=== PATIENT | female | born 1970 | race Caucasian/White ===

== ENCOUNTER 2016-11-23 18:02 | Emergency (ER) | payer OTHER ==
[~2016-11-23] VITALS: Wt 104.3 kg
[~2016-11-23 18:02] MED LIST: A-CILLIN500 MG PO; ALPRAZOLAM XR0.5 MG PO; AMBIEN10 M1 PO; ATIVAN0.5 MG PO; BACTRIM DS 8001 TA1 PO; CIPROFLOXACIN500 MG PO; CORTISPORIN SUS10 ML OT; CYCLOBENZAPRINE10 MG PO; DIFLUCAN150 MG PO; DUONEB 3 MG/3 ML3 M1 INH; FLEXERIL10 MG PO; FLURAZEPAM HCL15 MG PO; HYDROCODONE BIT1 T11 PO; LEVAQUIN750 MG PO; LEVOFLOXACIN500 MG PO; MOTRIN800 MG PO; NAPROSYN500 MG PO; PENICILLIN VK500 MG PO; PREDNICOT20 MG PO; PREDNISONE10 MG PO; PROZAC20 MG PO; PYRIDIUM200 M1 PO; PYRIDIUM200 MG PO; Peridex 473 ML473 ML PO; RESTORIL15 MG PO; ROBITUSSIN AC 110 ML PO; SEROQUEL400 M1 PO; TYLENOL500 MG PO; VICODIN 5/500 505 MG PO; Vicodin 5/500 505 MG PO; XANAX1 MG PO
[2016-11-23] MEDS ORDERED: ZITHROMAX250 MG PO (19:37)
[2016-11-23] MEDS ORDERED: HYCODAN/HYDROMET5 ML PO (19:37)
== END 2016-11-23 19:42 | disposition home or self-care (01) ==
LOC: ED 18:02
DX: R05 Cough (principal); Z98.890 Other specified postprocedural states; Z98.51 Tubal ligation status; Z90.710 Acquired absence of both cervix and uterus

== ENCOUNTER 2017-01-31 08:18 | Inpatient (IN) | payer OTHER ==
[~2017-01-31] VITALS: Ht 167.6 cm; Wt 108.0 kg
--- NOTE | ~2017-01-31 | PR ---
[place], [place] PROGRESS NOTE [id number] #: [id number] ROOM: 505 DOCTOR: ANEUDY PARKER MD BIRTHDATE: [birth year] DOS: The patient is having more cough and some wheezing and some chest pain. She has diffuse rhonchi and crepitus in the lungs and her heart is regular. Her blood pressure 126/88, pulse is 92, respirations 18, temperature 98.6. Her CBC today showed white count 7200 and hemoglobin is 13. Comprehensive metabolic profile showed glucose 151, potassium 3.3, calcium 8.2, other values are normal. I will start the patient on DuoNeb and also Mucinex. ANEUDY PARKER MD CM:PNTRANS 1410 5 ANEUDY PARKER MD 02/02/177 interface
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
[~2017-01-31 08:18] MED LIST changes: +HYCODAN/HYDROMET5 ML PO; +ZITHROMAX250 MG PO
[2017-01-31 12:00] LABS: BASO % 0.4 % (0.0-1.0); EOS # 0.6 10*3/uL (0.0-0.4); EOS % 6.9 % (1.0-4.0); HEMOGLOBIN 13.2 g/dl (12.0-16.0); LYMPH # 1.1 10*3/uL (1.3-4.4); LYMPH % 13.8 % (27.0-41.0); MEAN CELL VOLUME 80.2 fl (81.0-99.0); MEAN CORPUSCULAR HGB 26.5 pg (27.0-31.0); MEAN PLATELET VOLUME 9.1 fl (9.6-12.3); MONO # 0.6 10*3/uL (0.1-1.0); MONO % 7.5 % (3.0-9.0); NEUT # 5.9 10*3/uL (2.3-7.9); NEUT % 70.9 % (47.0-73.0); PLATELET COUNT AUTOMATED 178 10*3/uL (130-400); RED BLOOD COUNT 4.99 10*6/uL (4.10-5.10); WHITE BLOOD COUNT 8.3 10*3/uL (4.8-10.8)
[2017-01-31 12:18] LABS: BUN 11 mg/dl (7-24); CARBON DIOXIDE 27 mmol/L (21-32); CHLORIDE 104 mmol/L (98-107); EST GLOM FILT AFRICAN AMERICAN > 60 ml/min; GLUCOSE 101 mg/dL (65-99); POTASSIUM 3.6 mmol/L (3.5-5.1); SODIUM 142 mmol/L (136-145)
[2017-01-31 12:21] LABS: TROPONIN I < 0.015 ng/ml (<0.045)
[2017-02-01 05:58] LABS: BASO % 0.1 % (0.0-1.0); EOS # 0.1 10*3/uL (0.0-0.4); EOS % 1.2 % (1.0-4.0); HEMATOCRIT 39.6 % (37.0-47.0); IG # 0.1 10*3/uL (0.0-0.1); LYMPH % 13.1 % (27.0-41.0); MEAN CELL VOLUME 80.8 fl (81.0-99.0); MEAN CORPUSCULAR HGB 26.5 pg (27.0-31.0); MEAN CORPUSCULAR HGB CONC 32.8 g/dl (33.0-37.0); MEAN PLATELET VOLUME 9.4 fl (9.6-12.3); MONO # 0.6 10*3/uL (0.1-1.0); MONO % 8.4 % (3.0-9.0); NEUT # 5.5 10*3/uL (2.3-7.9); NEUT % 76.5 % (47.0-73.0); PLATELET COUNT AUTOMATED 223 10*3/uL (130-400); WHITE BLOOD COUNT 7.2 10*3/uL (4.8-10.8)
[2017-02-01 06:00] LABS: ALBUMIN 3.2 gm/dl (3.1-4.5); ALKALINE PHOSPHATASE 71 U/L (45-117); BILIRUBIN, TOTAL 0.2 mg/dl (0.2-1.0); BUN 9 mg/dl (7-24); CARBON DIOXIDE 26 mmol/L (21-32); CHLORIDE 104 mmol/L (98-107); EST GLOM FILT AFRICAN AMERICAN > 60 ml/min; GLUCOSE 151 mg/dL (65-99); POTASSIUM 3.3 mmol/L (3.5-5.1); SGOT/AST 15 IU/L (3-35); SGPT/ALT 25 U/L (12-78); SODIUM 140 mmol/L (136-145); TOTAL PROTEIN 6.9 gm/dL (6.4-8.2)
[2017-02-03 07:25] LABS: BUN 9 mg/dl (7-24); CARBON DIOXIDE 31 mmol/L (21-32); CHLORIDE 101 mmol/L (98-107); EST GLOM FILT AFRICAN AMERICAN > 60 ml/min; GLUCOSE 94 mg/dL (65-99); POTASSIUM 3.8 mmol/L (3.5-5.1); SODIUM 140 mmol/L (136-145)
[2017-02-04 06:13] LABS: BASO % 0.4 % (0.0-1.0); EOS # 0.6 10*3/uL (0.0-0.4); HEMATOCRIT 41.7 % (37.0-47.0); HEMOGLOBIN 13.5 g/dl (12.0-16.0); IG # 0.1 10*3/uL (0.0-0.1); LYMPH # 2.6 10*3/uL (1.3-4.4); LYMPH % 31.5 % (27.0-41.0); MEAN CELL VOLUME 81.1 fl (81.0-99.0); MEAN CORPUSCULAR HGB 26.3 pg (27.0-31.0); MEAN CORPUSCULAR HGB CONC 32.4 g/dl (33.0-37.0); MEAN PLATELET VOLUME 9.2 fl (9.6-12.3); MONO # 0.5 10*3/uL (0.1-1.0); MONO % 6.3 % (3.0-9.0); NEUT # 4.5 10*3/uL (2.3-7.9); NEUT % 54.2 % (47.0-73.0); PLATELET COUNT AUTOMATED 232 10*3/uL (130-400); RED BLOOD COUNT 5.14 10*6/uL (4.10-5.10); RED CELL DISTRI WIDTH 13.7 % (0-14.5); WHITE BLOOD COUNT 8.4 10*3/uL (4.8-10.8)
[2017-02-05] MEDS ORDERED: MUCINEX COLD-F177 ML PO (14:14)
[2017-02-05] MEDS ORDERED: DOXYCYCLINE100 M3 PO (14:14)
[2017-02-05] MEDS ORDERED: ROBITUSSIN5 ML PO (14:14)
== END 2017-02-05 14:24 | disposition home or self-care (01) | DRG 871 ==
LOC: ED 08:18 → EDHOLD 12:29 → 5E 12:29
PROVIDERS: Emergency Medicine; Internal Medicine; Student in an Organized Health Care Education/Training Program
DX: A41.9 Sepsis, unspecified organism (principal); J18.1 Lobar pneumonia, unspecified organism; E44.0 Moderate protein-calorie malnutrition; F33.9 Major depressive disorder, recurrent, unspecified; M54.5 Low back pain; F41.9 Anxiety disorder, unspecified; Z68.28 Body mass index [BMI] 28.0-28.9, adult

== ENCOUNTER 2017-07-26 20:41 | Emergency (ER) | payer OTHER ==
[~2017-07-26] VITALS: Ht 167.6 cm; Wt 97.5 kg
[~2017-07-26 20:41] MED LIST changes: +DOXYCYCLINE100 M3 PO; +MUCINEX COLD-F177 ML PO; +ROBITUSSIN5 ML PO
[2017-07-26 21:11] LABS: BILIRUBIN NEGATIVE (NEGATIVE); BLOOD TRACE-INTACT (NEGATIVE); CLARITY CLOUDY (CLEAR); COLOR YELLOW (YELLOW); GLUCOSE NEGATIVE (NEGATIVE); KETONE NEGATIVE (NEGATIVE); LEUKO ESTERASE NEGATIVE (NEGATIVE); NITRITE NEGATIVE (NEGATIVE); SPECIFIC GRAVITY >= 1.030 (1.005-1.030); UROBILINOGEN 0.2 E.U./dl (0.2-1.0)
[2017-07-26 21:16] LABS: BACTERIA 4+; EPITHELIAL CELLS TNTC; RBC 0-2 rbc/hpf (0-2)
== END 2017-07-26 23:49 | disposition home or self-care (01) ==
LOC: ED 20:41
PROVIDERS: Nurse Practitioner Family
DX: R07.81 Pleurodynia (principal)

== ENCOUNTER 2017-10-22 16:36 | Emergency (ER) | payer OTHER ==
[~2017-10-22] VITALS: Ht 167.6 cm; Wt 99.8 kg
[2017-10-22] MEDS ORDERED: BROMFED DM COU118 M2 PO (17:24)
[2017-10-22] MEDS ORDERED: AUGMENTIN 875875 MG PO (17:24)
== END 2017-10-22 17:40 | disposition home or self-care (01) ==
LOC: ED 16:36
DX: J02.9 Acute pharyngitis, unspecified (principal); H66.93 Otitis media, unspecified, bilateral; Z98.51 Tubal ligation status; Z79.899 Other long term (current) drug therapy

== ENCOUNTER 2018-03-13 08:02 | Emergency (ER) | payer OTHER ==
[~2018-03-13] VITALS: Ht 167.6 cm; Wt 99.8 kg
[~2018-03-13 08:02] MED LIST changes: +AUGMENTIN 875875 MG PO; +BROMFED DM COU118 M2 PO
[2018-03-13] MEDS ORDERED: ROBITUSSIN DM 105 ML PO (08:52)
[2018-03-13] MEDS ORDERED: FLONASE ALLERG9.9 ML NAS (08:52)
== END 2018-03-13 09:25 | disposition home or self-care (01) ==
LOC: ED 08:02
DX: J06.9 Acute upper respiratory infection, unspecified (principal); R05 Cough; Z98.890 Other specified postprocedural states; Z98.51 Tubal ligation status; Z90.710 Acquired absence of both cervix and uterus; Z79.899 Other long term (current) drug therapy

== ENCOUNTER → 2018-03-15 | Outpatient (CLI) | payer OTHER ==
[~2018-03-15] MED LIST changes: +FLONASE ALLERG9.9 ML NAS; +IBU800 MG PO; +ROBITUSSIN DM 105 ML PO; +SEROQUEL100 MG PO
[2018-03-15 17:52] LABS: BASO # 0.1 10*3/uL (0.0-0.1); BASO % 0.4 % (0.0-1.0); EOS % 7.7 % (1.0-4.0); HEMATOCRIT 39.9 % (37.0-47.0); HEMOGLOBIN 13.2 g/dl (12.0-16.0); LYMPH # 2.3 10*3/uL (1.3-4.4); LYMPH % 17.2 % (27.0-41.0); MEAN CELL VOLUME 81.3 fl (81.0-99.0); MEAN CORPUSCULAR HGB 26.9 pg (27.0-31.0); MEAN CORPUSCULAR HGB CONC 33.1 g/dl (33.0-37.0); MEAN PLATELET VOLUME 8.8 fl (9.6-12.3); MONO # 0.9 10*3/uL (0.1-1.0); MONO % 6.7 % (3.0-9.0); NEUT % 67.2 % (47.0-73.0); PLATELET COUNT AUTOMATED 211 10*3/uL (130-400); RED BLOOD COUNT 4.91 10*6/uL (4.10-5.10); RED CELL DISTRI WIDTH 13.2 % (0-14.5); WHITE BLOOD COUNT 13.4 10*3/uL (4.8-10.8)
[2018-03-15 18:08] LABS: ALBUMIN 3.3 gm/dl (3.1-4.5); ALKALINE PHOSPHATASE 76 U/L (45-117); BUN 16 mg/dl (7-24); CHLORIDE 104 mmol/L (98-107); CREATININE 0.89 mg/dL (0.55-1.02); POTASSIUM 3.6 mmol/L (3.5-5.1); SGOT/AST 12 IU/L (3-35); SGPT/ALT 23 U/L (12-78); SODIUM 139 mmol/L (136-145)
== END | disposition home or self-care (01) ==
LOC: LAB 17:17
PROVIDERS: Internal Medicine
DX: J44.9 Chronic obstructive pulmonary disease, unspecified (principal); J18.9 Pneumonia, unspecified organism; R09.89 Other specified symptoms and signs involving the circulatory and respiratory systems

== ENCOUNTER 2018-03-16 15:42 | Inpatient (IN) | payer OTHER ==
[~2018-03-16] VITALS: Ht 167.6 cm; Wt 111.2 kg
--- NOTE | ~2018-03-16 | PR ---
[place], [place] PROGRESS NOTE NAME: RUBI WYNN [facility] #: [id number] UNIT #: [id number] ROOM: 408 DOCTOR: ANEUDY PARKER MD BIRTHDATE: [birth year] DOS: SUBJECTIVE: The patient has been admitted to hospital with severe acute bronchitis and bronchial asthma. She is gradually getting better. She is breathing better today. OBJECTIVE: VITAL SIGNS: Her temperature 98, pulse is 110, respirations 20, blood pressure 140/86. CHEST: Occasional rhonchi. No crepitation. ABDOMEN: Soft. EXTREMITIES: There is no swelling of the leg, so the patient is showing some improvement. ANEUDY PARKER MD CM:PNTRANS 1704 28 ANEUDY PARKER MD 03/21/182027 interface
--- NOTE | ~2018-03-16 | PR ---
[place], [place] PROGRESS NOTE NAME: [id number] UNIT #: [id number] ROOM: 408 DOCTOR: ANEUDY PARKER MD BIRTHDATE: [birth year] DOS: 03/20/2018 SUBJECTIVE: The patient has been admitted to hospital with severe persistent asthmatic attack with difficulty in breathing. She was getting little better, but last night, she had a lot of severe cough, which improved a little bit now and she is having bilateral wheezing with no crepitation. OBJECTIVE: HEART: Regular. ABDOMEN: Soft. VITAL SIGNS: Stable. PLAN: So, she is showing slow improvement. We will continue with the present treatment. ANEUDY PARKER MD CM:PNTRANS 0812 0854 ANEUDY PARKER MD 03/21/18 0055 interface
[~2018-03-16 15:42] MED LIST changes: -IBU800 MG PO; -SEROQUEL100 MG PO
[2018-03-16 16:00] VITALS: BP 124/80; BP 130/57
[2018-03-16] MEDS ORDERED: SEROQUEL100 MG PO (16:16)
[2018-03-16] MEDS ORDERED: IBU800 MG PO (16:18)
[2018-03-16] MEDS ORDERED: CYCLOBENZAPRINE10 MG PO (16:18)
[2018-03-16 16:30] LABS: BASO # 0.1 10*3/uL (0.0-0.1); BASO % 0.4 % (0.0-1.0); EOS # 0.7 10*3/uL (0.0-0.4); HEMATOCRIT 40.8 % (37.0-47.0); HEMOGLOBIN 13.5 g/dl (12.0-16.0); LYMPH # 2.2 10*3/uL (1.3-4.4); LYMPH % 18.6 % (27.0-41.0); MEAN CORPUSCULAR HGB 26.8 pg (27.0-31.0); MEAN CORPUSCULAR HGB CONC 33.1 g/dl (33.0-37.0); MEAN PLATELET VOLUME 8.9 fl (9.6-12.3); MONO # 0.8 10*3/uL (0.1-1.0); MONO % 6.6 % (3.0-9.0); NEUT # 7.8 10*3/uL (2.3-7.9); NEUT % 67.5 % (47.0-73.0); PLATELET COUNT AUTOMATED 237 10*3/uL (130-400); RED BLOOD COUNT 5.04 10*6/uL (4.10-5.10); RED CELL DISTRI WIDTH 13.2 % (0-14.5); WHITE BLOOD COUNT 11.6 10*3/uL (4.8-10.8)
[2018-03-16 16:49] LABS: ALBUMIN 3.3 gm/dl (3.1-4.5); ALKALINE PHOSPHATASE 72 U/L (45-117); BUN 12 mg/dl (7-24); CHLORIDE 104 mmol/L (98-107); CREATININE 0.86 mg/dL (0.55-1.02); POTASSIUM 3.6 mmol/L (3.5-5.1); SGOT/AST 11 IU/L (3-35); SGPT/ALT 21 U/L (12-78); SODIUM 139 mmol/L (136-145)
[2018-03-16 20:00] VITALS: BP 127/74
[2018-03-17 00:20] VITALS: BP 131/71
[2018-03-17 07:39] LABS: HEMATOCRIT 38.8 % (37.0-47.0); HEMOGLOBIN 12.7 g/dl (12.0-16.0); MEAN CELL VOLUME 81.9 fl (81.0-99.0); MEAN CORPUSCULAR HGB 26.8 pg (27.0-31.0); MEAN CORPUSCULAR HGB CONC 32.7 g/dl (33.0-37.0); PLATELET COUNT AUTOMATED 225 10*3/uL (130-400); RED BLOOD COUNT 4.74 10*6/uL (4.10-5.10); RED CELL DISTRI WIDTH 13.1 % (0-14.5); WHITE BLOOD COUNT 14.8 10*3/uL (4.8-10.8)
[2018-03-17 07:55] LABS: ACT PARTIAL THROMBO TIME 22.3 SECONDS (20.8-31.5); INTERNATIONAL NORM RATIO 0.9 (2.0-3.5)
[2018-03-17 08:00] VITALS: BP 139/76
[2018-03-17 08:01] LABS: ALKALINE PHOSPHATASE 68 U/L (45-117); BUN 12 mg/dl (7-24); CHLORIDE 106 mmol/L (98-107); CHOLESTEROL 194 mg/dL (<200); CREATININE 0.86 mg/dL (0.55-1.02); FREE T4 1.01 ng/dl (0.76-1.46); HDL CHOLESTEROL 46 mg/dl (40-60); LDL CHOLESTEROL 129 mg/dL (9-159); POTASSIUM 3.6 mmol/L (3.5-5.1); SGOT/AST 10 IU/L (3-35); SODIUM 140 mmol/L (136-145); TRIGLYCERIDES 96 mg/dl (<150); VLDL CHOLESTEROL 19 mg/dL (6-40)
[2018-03-17 08:06] LABS: BURR CELLS FEW; PLATELET SUFFICIENCY NORMAL (NORMAL); POLYCHROMASIA SLIGHT; SGPT/ALT 20 U/L (12-78); THYROID STIM HORMONE (HS) 0.456 uIU/ml (0.358-4.75); TOTAL CELLS COUNTED 100 #CELLS; TOTAL PROTEIN 6.6 gm/dL (6.4-8.2)
[2018-03-17 09:16] LABS: BILIRUBIN NEGATIVE (NEGATIVE); BLOOD NEGATIVE (NEGATIVE); CLARITY CLOUDY (CLEAR); COLOR YELLOW (YELLOW); GLUCOSE TRACE (NEGATIVE); KETONE NEGATIVE (NEGATIVE); LEUKO ESTERASE NEGATIVE (NEGATIVE); NITRITE NEGATIVE (NEGATIVE); PH 6.5 (5.0-9.0); SPECIFIC GRAVITY <= 1.005 (1.005-1.030); UROBILINOGEN 0.2 E.U./dl (0.2-1.0)
[2018-03-17 09:53] LABS: VITAMIN D, 25-HYDROXY 27.7 ng/mL (30-100)
[2018-03-17 10:38] LABS: BACTERIA TRACE; EPITHELIAL CELLS 20-30
[2018-03-17 12:00] VITALS: BP 116/78
[2018-03-17 16:00] VITALS: BP 130/82
[2018-03-17 20:00] VITALS: BP 174/93
[2018-03-18] VITALS: BP 116/72; BP 160/99
[2018-03-18 06:50] LABS: BASO % 0.2 % (0.0-1.0); HEMATOCRIT 38.3 % (37.0-47.0); HEMOGLOBIN 12.4 g/dl (12.0-16.0); LYMPH # 1.1 10*3/uL (1.3-4.4); LYMPH % 5.6 % (27.0-41.0); MEAN CELL VOLUME 82.7 fl (81.0-99.0); MEAN CORPUSCULAR HGB 26.8 pg (27.0-31.0); MEAN CORPUSCULAR HGB CONC 32.4 g/dl (33.0-37.0); MEAN PLATELET VOLUME 9.1 fl (9.6-12.3); MONO # 0.6 10*3/uL (0.1-1.0); NEUT # 17.3 10*3/uL (2.3-7.9); NEUT % 89.7 % (47.0-73.0); PLATELET COUNT AUTOMATED 229 10*3/uL (130-400); RED BLOOD COUNT 4.63 10*6/uL (4.10-5.10); RED CELL DISTRI WIDTH 13.4 % (0-14.5); WHITE BLOOD COUNT 19.2 10*3/uL (4.8-10.8)
[2018-03-18 07:00] LABS: ALKALINE PHOSPHATASE 67 U/L (45-117); BUN 15 mg/dl (7-24); CHLORIDE 107 mmol/L (98-107); CREATININE 0.77 mg/dL (0.55-1.02); POTASSIUM 3.9 mmol/L (3.5-5.1); SGOT/AST 8 IU/L (3-35); SGPT/ALT 19 U/L (12-78); SODIUM 141 mmol/L (136-145); TOTAL PROTEIN 6.6 gm/dL (6.4-8.2)
[2018-03-18 08:00] VITALS: BP 138/69
[2018-03-18 16:00] VITALS: BP 144/84; BP 153/94
[2018-03-18 20:00] VITALS: BP 129/76
[2018-03-19] VITALS: BP 119/71
[2018-03-19 08:00] VITALS: BP 141/78
[2018-03-19 12:00] VITALS: BP 150/72
[2018-03-19 16:00] VITALS: BP 141/85
[2018-03-19 20:00] VITALS: BP 137/83
[2018-03-20] VITALS: BP 147/87
[2018-03-20 08:00] VITALS: BP 112/71
[2018-03-20 12:00] VITALS: BP 137/85
[2018-03-20 16:00] VITALS: BP 144/96
[2018-03-20 20:00] VITALS: BP 140/86
[2018-03-21] VITALS: BP 148/88; BP 151/92
[2018-03-21 08:00] VITALS: BP 137/88
[2018-03-21 12:00] VITALS: BP 138/90
[2018-03-21 16:00] VITALS: BP 141/81
[2018-03-21 20:00] VITALS: BP 144/80
[2018-03-22] VITALS: BP 119/61
[2018-03-22 06:45] LABS: HEMATOCRIT 42.6 % (37.0-47.0); HEMOGLOBIN 13.5 g/dl (12.0-16.0); MEAN CELL VOLUME 82.9 fl (81.0-99.0); MEAN CORPUSCULAR HGB 26.3 pg (27.0-31.0); MEAN CORPUSCULAR HGB CONC 31.7 g/dl (33.0-37.0); MEAN PLATELET VOLUME 10.3 fl (9.6-12.3); PLATELET COUNT AUTOMATED 242 10*3/uL (130-400); RED BLOOD COUNT 5.14 10*6/uL (4.10-5.10); RED CELL DISTRI WIDTH 13.2 % (0-14.5); WHITE BLOOD COUNT 20.6 10*3/uL (4.8-10.8)
[2018-03-22 06:46] LABS: CREATININE 0.88 mg/dL (0.55-1.02)
[2018-03-22 07:57] LABS: PLATELET SUFFICIENCY NORMAL (NORMAL); TOTAL CELLS COUNTED 100 #CELLS
[2018-03-22 08:00] VITALS: BP 140/71
[2018-03-22 12:00] VITALS: BP 158/90
[2018-03-22] MEDS ORDERED: PREDNISONE10 MG PO (13:45)
[2018-03-22] MEDS ORDERED: ZITHROMAX500 MG PO (13:47)
== END 2018-03-22 14:32 | disposition home or self-care (01) | DRG 871 ==
LOC: 4E 15:42
PROVIDERS: Internal Medicine
DX: A41.9 Sepsis, unspecified organism (principal); J18.9 Pneumonia, unspecified organism; J45.51 Severe persistent asthma with (acute) exacerbation; D72.810 Lymphocytopenia; J45.909 Unspecified asthma, uncomplicated; F41.9 Anxiety disorder, unspecified; G47.00 Insomnia, unspecified; R73.03 Prediabetes; Z80.1 Family history of malignant neoplasm of trachea, bronchus and lung; Z80.8 Family history of malignant neoplasm of other organs or systems; Z79.899 Other long term (current) drug therapy

== ENCOUNTER → 2018-09-22 | Outpatient (CLI) | payer OTHER ==
[~2018-09-22] MED LIST changes: +IBU800 MG PO; +NORCO 5-325 TA1 EACH PO; +SEROQUEL100 MG PO; +ZITHROMAX500 MG PO
== END | disposition home or self-care (01) ==
LOC: RAD 17:56
DX: S33.5XXA Sprain of ligaments of lumbar spine, initial encounter (principal); M43.16 Spondylolisthesis, lumbar region; X58.XXXA Exposure to other specified factors, initial encounter; Y93.9 Activity, unspecified; Y92.89 Other specified places as the place of occurrence of the external cause; Y99.8 Other external cause status

== ENCOUNTER → 2018-10-12 | Outpatient (CLI) | payer OTHER | END | disposition home or self-care (01) | LOC: CT 13:00 | DX: M51.36 Other intervertebral disc degeneration, lumbar region (principal) ==

== ENCOUNTER 2018-10-16 01:45 | Emergency (ER) | payer OTHER ==
[~2018-10-16] VITALS: Ht 167.6 cm; Wt 120.2 kg
[~2018-10-16 01:45] MED LIST changes: -NORCO 5-325 TA1 EACH PO
[2018-10-16 02:30] LABS: BILIRUBIN NEGATIVE (NEGATIVE); BLOOD 2+ (NEGATIVE); CLARITY SL CLOUDY (CLEAR); COLOR YELLOW (YELLOW); GLUCOSE NEGATIVE (NEGATIVE); KETONE NEGATIVE (NEGATIVE); LEUKO ESTERASE NEGATIVE (NEGATIVE); NITRITE NEGATIVE (NEGATIVE); SPECIFIC GRAVITY 1.025 (1.005-1.030); UROBILINOGEN 0.2 E.U./dl (0.2-1.0)
[2018-10-16 02:41] LABS: BACTERIA 2+; EPITHELIAL CELLS 35-40; RBC 31-40 rbc/hpf (0-2)
[2018-10-16 02:44] LABS: BASO # 0.1 10*3/uL (0.0-0.1); BASO % 0.4 % (0.0-1.0); EOS # 0.5 10*3/uL (0.0-0.4); EOS % 3.5 % (1.0-4.0); HEMATOCRIT 38.7 % (37.0-47.0); HEMOGLOBIN 12.8 g/dl (12.0-16.0); LYMPH # 2.5 10*3/uL (1.3-4.4); LYMPH % 15.9 % (27.0-41.0); MEAN CELL VOLUME 81.3 fl (81.0-99.0); MEAN CORPUSCULAR HGB 26.9 pg (27.0-31.0); MEAN CORPUSCULAR HGB CONC 33.1 g/dl (33.0-37.0); MEAN PLATELET VOLUME 9.1 fl (9.6-12.3); MONO # 1.1 10*3/uL (0.1-1.0); MONO % 6.9 % (3.0-9.0); NEUT # 11.3 10*3/uL (2.3-7.9); NEUT % 72.1 % (47.0-73.0); PLATELET COUNT AUTOMATED 230 10*3/uL (130-400); RED BLOOD COUNT 4.76 10*6/uL (4.10-5.10); RED CELL DISTRI WIDTH 14.4 % (0-14.5); WHITE BLOOD COUNT 15.6 10*3/uL (4.8-10.8)
[2018-10-16 02:57] LABS: ALBUMIN 3.2 gm/dl (3.1-4.5); ALKALINE PHOSPHATASE 71 U/L (45-117); BUN 13 mg/dl (7-24); CHLORIDE 103 mmol/L (98-107); CREATININE 0.79 mg/dL (0.55-1.02); LIPASE 93 U/L (73-393); POTASSIUM 3.6 mmol/L (3.5-5.1); SGOT/AST 18 IU/L (3-35); SGPT/ALT 28 U/L (12-78); SODIUM 136 mmol/L (136-145); TOTAL PROTEIN 6.8 gm/dL (6.4-8.2)
[2018-10-16] MEDS ORDERED: NORCO 5-325 TA1 EACH PO (03:58)
== END 2018-10-16 05:01 | disposition home or self-care (01) ==
LOC: ED 01:45
PROVIDERS: Emergency Medicine Emergency Medical Services
DX: N20.1 Calculus of ureter (principal); N36.8 Other specified disorders of urethra; J45.909 Unspecified asthma, uncomplicated; Z87.442 Personal history of urinary calculi

== ENCOUNTER 2018-11-10 22:29 | Emergency (ER) | payer OTHER ==
[~2018-11-10] VITALS: Ht 167.6 cm; Wt 122.5 kg
--- NOTE | ~2018-11-10 | EKG ---
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
[~2018-11-10 22:29] MED LIST changes: +NORCO 5-325 TA1 EACH PO
[2018-11-10 23:22] LABS: BASO # 0.1 10*3/uL (0.0-0.1); BASO % 0.3 % (0.0-1.0); EOS # 0.4 10*3/uL (0.0-0.4); EOS % 2.7 % (1.0-4.0); HEMOGLOBIN 12.7 g/dl (12.0-16.0); LYMPH # 2.4 10*3/uL (1.3-4.4); LYMPH % 15.8 % (27.0-41.0); MEAN CELL VOLUME 81.4 fl (81.0-99.0); MEAN CORPUSCULAR HGB 26.5 pg (27.0-31.0); MEAN CORPUSCULAR HGB CONC 32.6 g/dl (33.0-37.0); MEAN PLATELET VOLUME 8.7 fl (9.6-12.3); MONO # 0.8 10*3/uL (0.1-1.0); MONO % 5.5 % (3.0-9.0); NEUT # 11.2 10*3/uL (2.3-7.9); NEUT % 74.5 % (47.0-73.0); PLATELET COUNT AUTOMATED 243 10*3/uL (130-400); RED BLOOD COUNT 4.79 10*6/uL (4.10-5.10); RED CELL DISTRI WIDTH 14.3 % (0-14.5)
[2018-11-10 23:35] LABS: ACT PARTIAL THROMBO TIME 23.2 SECONDS (20.8-31.5); INTERNATIONAL NORM RATIO 0.9 (2.0-3.5)
[2018-11-10 23:41] LABS: ALBUMIN 3.2 gm/dl (3.1-4.5); ALKALINE PHOSPHATASE 62 U/L (45-117); BUN 16 mg/dl (7-24); CHLORIDE 102 mmol/L (98-107); CREATININE 0.91 mg/dL (0.55-1.02); POTASSIUM 3.6 mmol/L (3.5-5.1); SGOT/AST 12 IU/L (3-35); SGPT/ALT 18 U/L (12-78); SODIUM 138 mmol/L (136-145); TOTAL PROTEIN 6.8 gm/dL (6.4-8.2)
[2018-11-10 23:42] LABS: BETA-HCG, QUANT < 1.0 mIU/mL (1-3); TROPONIN I < 0.015 ng/ml (<0.045)
[2018-11-11 00:44] LABS: BILIRUBIN NEGATIVE (NEGATIVE); BLOOD 1+ (NEGATIVE); CLARITY SL CLOUDY (CLEAR); COLOR YELLOW (YELLOW); GLUCOSE NEGATIVE (NEGATIVE); KETONE NEGATIVE (NEGATIVE); LEUKO ESTERASE NEGATIVE (NEGATIVE); NITRITE NEGATIVE (NEGATIVE); UROBILINOGEN 0.2 E.U./dl (0.2-1.0)
[2018-11-11 00:53] LABS: EPITHELIAL CELLS 40-45
[2018-11-11 00:54] LABS: WBC 0-2 wbc/hpf (0-5)
== END 2018-11-11 08:28 | disposition home or self-care (01) ==
LOC: ED 22:29
PROVIDERS: Student in an Organized Health Care Education/Training Program
DX: M79.89 Other specified soft tissue disorders (principal); J45.909 Unspecified asthma, uncomplicated; N23 Unspecified renal colic; Z90.710 Acquired absence of both cervix and uterus; Z79.2 Long term (current) use of antibiotics; Z79.899 Other long term (current) drug therapy

== ENCOUNTER 2019-01-23 14:56 | Emergency (ER) | payer OTHER ==
[~2019-01-23] VITALS: Ht 167.6 cm; Wt 127.0 kg
--- NOTE | ~2019-01-23 | EKG ---
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 : 1970 Requested By: SOHEILA VAZQUEZ DNP Order Number: [id number] Reading MD: Kar Wong MD Measurements Intervals [place] Rate: 104 P: 74 NC: 198 QRS: 89 QRSD: 91 T: 26 QT: 369 QTc: 486 Interpretive Statements Sinus tachycardia Borderline prolonged NC interval Low voltage, precordial leads Nonspecific T abnormalities, anterior leads Minimal ST elevation, lateral leads Borderline prolonged QT interval Baseline wander in lead(s) I,II,aVR,aVF,V3,V6 Compared to ECG 11/10/2018 23:02:56 Low QRS voltage now present T-wave abnormality now present ST (T wave) deviation still present Electronically Signed On 01-25-2019 3:58:15 PST by Kar Wong MD CM:EKGRPT:ELECTROCARDIOGRAM REPORT [id number] 0358 SOHEILA VAZQUEZ DNP EPIPHANY DRAFT REPORT SOHEILA VAZQUEZ DNP
[2019-01-23 15:43] LABS: BASO % 0.4 % (0.0-1.0); EOS # 0.4 10*3/uL (0.0-0.4); EOS % 4.1 % (1.0-4.0); HEMATOCRIT 37.2 % (37.0-47.0); LYMPH % 19.4 % (27.0-41.0); MEAN CORPUSCULAR HGB 26.1 pg (27.0-31.0); MEAN CORPUSCULAR HGB CONC 32.3 g/dl (33.0-37.0); MEAN PLATELET VOLUME 9.2 fl (9.6-12.3); MONO # 0.6 10*3/uL (0.1-1.0); MONO % 5.7 % (3.0-9.0); NEUT # 7.3 10*3/uL (2.3-7.9); NEUT % 69.2 % (47.0-73.0); PLATELET COUNT AUTOMATED 192 10*3/uL (130-400); RED BLOOD COUNT 4.59 10*6/uL (4.10-5.10); WHITE BLOOD COUNT 10.5 10*3/uL (4.8-10.8)
[2019-01-23 15:56] LABS: ACT PARTIAL THROMBO TIME 22.4 SECONDS (20.8-31.5); INTERNATIONAL NORM RATIO 0.9 (2.0-3.5)
[2019-01-23 16:08] LABS: ALBUMIN 3.3 gm/dl (3.1-4.5); ALKALINE PHOSPHATASE 69 U/L (45-117); BUN 13 mg/dl (7-24); CHLORIDE 105 mmol/L (98-107); CREATININE 0.82 mg/dL (0.55-1.02); POTASSIUM 3.2 mmol/L (3.5-5.1); SGOT/AST 19 IU/L (3-35); SGPT/ALT 33 U/L (12-78); SODIUM 141 mmol/L (136-145); TOTAL PROTEIN 6.6 gm/dL (6.4-8.2)
[2019-01-23 16:09] LABS: TROPONIN I < 0.015 ng/ml (<0.045)
== END 2019-01-23 17:12 | disposition home or self-care (01) ==
LOC: ED 14:56
PROVIDERS: Nurse Practitioner Family
DX: R60.0 Localized edema (principal); R07.89 Other chest pain; M79.605 Pain in left leg; K21.9 Gastro-esophageal reflux disease without esophagitis; Z90.710 Acquired absence of both cervix and uterus

== ENCOUNTER 2019-06-08 21:19 | Inpatient (IN) | payer OTHER ==
[~2019-06-08] VITALS: Ht 167.6 cm; Wt 134.0 kg
--- NOTE | ~2019-06-08 | PR ---
[place], [place] PROGRESS NOTE NAME: RUBI WYNN UNIT #: [id number] ROOM: 426 DOCTOR: MIA ARCE MD,DARLIN BIRTHDATE: [birth year] DOS: 06/10/2019 SUBJECTIVE: The patient noted comfortable at this time, resting on the bed this morning, reported reduction in symptoms of shortness of breath and cough. Denies symptoms of chest pain. Denies symptoms of fever or chills. The patient has symptoms of hemoptysis. Denies symptoms of nausea or vomiting. Edema of the lower extremity has been resolving. Still noted mild sinus tachycardia. Denies symptoms of headache or diplopia. Remaining systems were reviewed with the patient, they were noted all negative. OBJECTIVE: VITAL SIGNS: Normal temperature, respiratory rate 20, heart rate 103, blood pressure 140/82 recorded midnight. Intake recorded as 2200 mL, output 4660 mL. Pulse ox O2 on room air at rest was 96% saturation. HEENT: Examination shows head was atraumatic, chronic obesity. NECK: Supple. CARDIOVASCULAR: S1, S2 audible. LUNGS: Decreased breath sounds noted in the lungs bilaterally. There is no wheezing or crackles heard today. ABDOMEN: Soft, nontender. Bowel sounds present. EXTREMITIES: Still noted 1+ pitting edema. MUSCULOSKELETAL: Without deformities. CENTRAL NERVOUS SYSTEM: Cranial nerves 2-12 intact. LABORATORY DATA: BMP was noted as normal. Echocardiogram that was done yesterday reviewed by Dr. Schaefer was reported. The patient's findings as left ventricle ejection fraction 60-65%, mild LVH was reported, small pericardial effusion was also stated. There were no valvular abnormality stated. IMPRESSION: 1. The patient who has currently noted with improvement of acute exacerbation of bronchial asthma. 2. Suspicion of obstructive sleep apnea disorder. 3. Acute congestive heart failure, diastolic dysfunction very likely. 4. Morbid obesity. PLAN OF MANAGEMENT: Continuation of the current plan of management except the dose of Solu-Medrol will be decreased from 30 mg b.i.d. dosing. Continuation of other plan of management, bronchodilators, diuretic, monitor the patient's respiratory status. Use of oxygen supplementation in case of hypoxia. [place], [place] PROGRESS NOTE NAME: RUBI WYNN UNIT #: [id number] ROOM: 426 DOCTOR: DARLIN SOMMER MD BIRTHDATE: [birth year] DARLIN BELLAMY MD CM:PNTRANS 25 DARLIN ARCE MD 06/10/192225 interface
--- NOTE | ~2019-06-08 | DS ---
[place], [place] DISCHARGE SUMMARY [id number] UNIT #: [id number] ROOM: 426 DOCTOR: JUAN HOLDER MD BIRTHDATE: [birth year] DOS: 06/12/2019 DIAGNOSES: 1. Acute asthmatic bronchitis. 2. Moderate intermittent asthma with history of exacerbations. 3. Acute diastolic congestive heart failure. 4. Benign hypertension with left ventricular hypertrophy. 5. Morbid obesity with a BMI of more than 50. 6. Type 2 diabetes mellitus, new onset. 7. Generalized anxiety disorder. 8. Chronic low back pain. 9. Major depression, mild, recurrent. DISCHARGE MEDICATIONS: Glimepiride 4 mg daily, prednisone 5 mg twice a day, Ceftin 250 twice a day, breathing treatments with DuoNeb twice a day, Asmanex one puff twice a day, metoprolol 50 b.i.d. HOME MEDICATIONS: Xanax 1 mg twice a day, Seroquel 800 at bedtime, Cymbalta 60 daily, gabapentin 300 t.i.d., cyclobenzaprine 10 t.i.d., diclofenac 75 b.i.d., Hycodan 5 mL twice a day, and ranitidine 300 b.i.d. are continued. HOSPITAL COURSE: The patient is 49 years old, not known to me, comes in with complaints of difficulty breathing. Please refer to H and P for details. She was found to have acute asthmatic bronchitis and acute diastolic CHF. The patient was admitted, was placed on diuretics, breathing treatments, oxygen supplementation. She was found to be hypotensive and also had new onset diabetes. Medication adjustments will be made. Dr. Olivares was consulted. The patient was continued on her home medications. Readjustments in meds were made here. With IV Solu-Medrol, her breathing is much improved. Lasix helped with her CHF. Clinically, she is much improved and back to her baseline. She has been getting nebulizer breathing treatments and was slightly tachycardic. Metoprolol has been ordered and with that the heart rate has come down. Pressures have improved. Amaryl has helped with the high blood sugar. The patient is overall stable and improved. The patient is encouraged to lose weight and is to check her blood sugars at home. Echocardiogram showed normal LV function with diastolic dysfunction and LVH. Hemoglobin A1c was 7.1. The patient to follow with Dr. Jiménez as an outpatient. [place], [place] DISCHARGE SUMMARY [facility]: [facility] [id number] UNIT #: [id number] ROOM: 426 DOCTOR: JUAN HOLDER MD BIRTHDATE: [birth year] JUAN HOLDER MD CM:DISCHMARTI 0530 1346 JUAN HOLDER MD 06/12/19 1346 interface
--- NOTE | ~2019-06-08 | EKG ---
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
--- NOTE | ~2019-06-08 | PR ---
[place], [place] PROGRESS NOTE NAME: [facility] [id number] UNIT #: [id number] ROOM: 426 DOCTOR: JUAN HOLDER MD BIRTHDATE: [birth year] DOS: 06/12/2019 SUBJECTIVE: The patient is feeling good and is not having any complaints today. OBJECTIVE: VITAL SIGNS: Graphic trend shows a pressure of 126/77, pulse of 94, respirations 18, temperature 97.4. At times the diastolic has been all the way up to high 90s. LUNGS: Diminished, breath sounds clear. HEART: Regular. ABDOMEN: Obese. EXTREMITIES: Without any edema. ASSESSMENT AND PLAN: 1. Acute asthmatic bronchitis, resolved. 2. Acute diastolic congestive heart failure, stable and improved. 3. Morbid obesity, counselled. The patient is stable, plan to discharge her to home today. JUAN HOLDER MD CM:PNTRANS 0522 2257 JUAN HOLDER MD 06/13/19 0207 interface
--- NOTE | ~2019-06-08 | WRIGHTHP ---
[place], [place] PATIENT HISTORY AND PHYSICAL EXAM NAME: RUBI WYNN [facility] #: [id number] UNIT #: [id number] ROOM: 408 DOCTOR: JUAN HOLDER MD BIRTHDATE: [birth year] DOS: 06/09/2019 HISTORY OF PRESENT ILLNESS: The patient is 49 years old. The patient is not known to us. She is a patient of Dr. Jiménez, comes in with complaints of cough. The patient states that she for the last 3-4 weeks has had cough. She was treated with three different antibiotics including Z-LUDIVINA, Augmentin and doxycycline. She also got two courses of steroids and without any improvement. She decided to come into the Emergency Room. She does not have any chest pain, but has noticed palpitations, does not have any fever or chills, does not have any abdominal pain, does not have any sputum production this morning. She has minimal leg edema. PAST MEDICAL HISTORY: Significant for: 1. Morbid obesity. 2. Generalized anxiety disorder. 3. Chronic back pain. 4. Major depression. MEDICATIONS: Voltaren 75 twice a day, cyclobenzaprine 10 t.i.d., Xanax 1 mg twice a day, duloxetine 60 daily, gabapentin 300 t.i.d., Hycodan 5 mL twice a day p.r.n., Seroquel 800 at bedtime, Zantac 300 b.i.d. SOCIAL HISTORY: Nonsmoker and does not use any alcohol. Lives at home. PHYSICAL EXAMINATION: GENERAL: She is awake and alert and oriented. VITAL SIGNS: Blood pressure is 151/94, pulse of 116-130, sinus tachycardic, respirations 20, temperature 97.9. LUNGS: Diminished breath sounds, few rales heard at the bases. HEART: Regular, tachycardic. ABDOMEN: Obese, soft. EXTREMITIES: Trace edema bilaterally. LABORATORY DATA: WBC count is 10.7, hemoglobin 12.2, hematocrit 38.6, platelets 167. Protime is 9.8, INR 1.9. Comprehensive glucose 217, BUN 12, creatinine 0.94, sodium 138, potassium 3.3, chloride 102, bicarbonate 28, calcium 8.3, protein 6.2, albumin 2.7. Lactic acid is 2.7. Chest x-ray has no pathology. CT of the chest shows no evidence of PE, atelectasis noticed in the lung bases with ground glass airspace disease throughout both lungs. ASSESSMENT AND PLAN: 1. The patient who comes in with complaints of cough and shortness of breath with known history of asthma. The patient most likely has underlying exacerbation of asthmatic bronchitis. The patient is placed on IV steroids, breathing treatments, antibiotics. Consult Dr. Olivares. 2. Morbid obesity, possibly has underlying hypertension, possibly has hypertensive heart disease. Echocardiogram is ordered. Rule out [place] protocol is also ordered, one dose of Lasix was given. 3. Benign hypertension. Pressures elevated. The patient has not taken any medications. She also is in sinus tachycardic. A low dose of Toprol will be [place], [place] PATIENT HISTORY AND PHYSICAL EXAM NAME: RUBI WYNN UNIT #: [id number] ROOM: [facility] DOCTOR: JUAN HOLDER MD BIRTHDATE: [birth year] started today. 4. Lactic acidosis of unknown etiology, possible sepsis pattern. Blood cultures will be done. 5. Elevated blood sugar noticed. She has no history of diabetes. Hemoglobin A1c will be ordered and the patient will be started on coverage scale. JUAN HOLDER MD CM:HISPHYS:PATIENT HISTORY AND PHYSICAL EXAMINATION 0843 JUAN HOLDER MD 06/09/19 0844 interface
--- NOTE | ~2019-06-08 | PR ---
[place], [place] PROGRESS NOTE NAME: RUBI WYNN UNIT #: [id number] ROOM: 426 DOCTOR: JUAN HOLDER MD BIRTHDATE: [birth year] DOS: SUBJECTIVE: The patient is doing better. She states that she is breathing better. Cough is subsiding. OBJECTIVE: VITAL SIGNS: Graphic trend shows a pressure of 140/82, pulse of 114, respirations 18, temperature 97.9. LUNGS: Diminished breath sounds, more air entry this morning, clearer. HEART: Regular, still tachycardic. ABDOMEN: Obese, soft. EXTREMITIES: Trace edema bilaterally. LABORATORY DATA: Echocardiogram not available. ASSESSMENT AND PLAN: 1. Asthmatic bronchitis with acute exacerbation, on IV steroids. Appreciate Dr. Olivares's input. 2. Benign hypertension with tachycardia, poorly controlled. Beta blockers have been started. Readjust medications. 3. Possible diastolic dysfunction. Awaiting echocardiogram results to further adjust medications. 4. Tachycardia from asthma exacerbation. Readjust meds. JUAN HOLDER MD CM:PNTRANS 0648 0659 JUAN HOLDER MD 06/10/19 0700 interface
--- NOTE | ~2019-06-08 | PR ---
[place], [place] PROGRESS NOTE [id number] #: [id number] ROOM: 426 DOCTOR: MIA ARCE MD,DARLIN BIRTHDATE: [birth year] DOS: 06/12/2019 SUBJECTIVE: She was noted comfortable at this time, resting comfortably in the bed, was planned for home discharge. She was noted to have marked improvement in symptoms of shortness of breath. There was no coughing, wheezing reported. The edema of lower extremities was resolved progressively. OBJECTIVE: VITAL SIGNS: Normal temperature, respiratory rate 18, heart rate of 106, blood pressure 126/77 previously. The pulse ox saturation on room air at rest 94% saturation. HEENT: Examination shows head was atraumatic. Eyes nonicterus. NECK: Supple. CARDIOVASCULAR: S1, S2 audible. LUNGS: No wheezing or crackles. ABDOMEN: Soft, nontender. Bowel sounds present. EXTREMITIES: No new changes. Chronic obesity. IMPRESSION: Progressive resolution of acute congestive heart failure with improvement noted acute bronchial asthma. PLAN OF MANAGEMENT: The patient could be discharged for home today as assessed by the primary care physician. Chest x-ray done this morning does not show any acute pulmonary infiltration. There was no interstitial edema, findings of congestive heart failure. DARLIN BELLAMY MD CM:PNTRANS 1350 22 DARLIN ARCE MD 06/12/192123 interface
--- NOTE | ~2019-06-08 | EKG ---
[place], [place] ELECTROCARDIOGRAM REPORT NAME: RUBI WYNN UNIT #: [id number] ROOM: 408 DOCTOR: CHE DRAFT REPORT BIRTHDATE: [birth year] [facility] Test Date: 2019-06-08 Test Time: 21:51:09 Pat Name: RUBI WYNN Department: Room: 408 Gender: F Chart Reader: : 1970 Requested By: MIGUEL READ Order Number: [id number] Reading MD: Dmitry Schaefer Measurements Intervals [place] Rate: 111 P: 69 AL: 195 QRS: 100 QRSD: 84 T: 27 QT: 322 QTc: 438 Interpretive Statements Sinus tachycardia Probable left atrial enlargement Right axis deviation Borderline T abnormalities, anterior leads Baseline wander in lead(s) V2 Compared to ECG 01/23/2019 15:25:41 Right-axis deviation now present ST (T wave) deviation no longer present T-wave abnormality still present Electronically Signed On 06-09-2019 8:39:45 PDT by Dmitry Schaefer CM:EKGRPT:ELECTROCARDIOGRAM REPORT [id number] MIGUEL BOLTON DRAFT REPORT MIGUEL BACK
--- NOTE | ~2019-06-08 | PR ---
[place], [place] PROGRESS NOTE [id number] UN[facility] #: [id number] ROOM: 426 DOCTOR: JUAN HOLDER MD BIRTHDATE: [birth year] DOS: 06/11/2019 SUBJECTIVE: The patient is feeling better, does not have any new complaints. OBJECTIVE: VITAL SIGNS: Blood pressure is 132/79, pulse of 90, respirations 20, temperature 97.5. LUNGS: Clear. HEART: Regular. Heart rate in the low 90s. ABDOMEN: Obese, soft, nontender. EXTREMITIES: Without any edema. LABORATORY DATA: Echocardiogram shows LVH with some mild diastolic dysfunction. Hemoglobin A1c 7.1. ASSESSMENT AND PLAN: 1. Acute asthmatic bronchitis with exacerbation, improving. 2. Elevated white cell count, most likely steroid effect. The steroids are being tapered down. 3. Benign hypertension, new onset with diastolic dysfunction and mild diastolic congestive heart failure, improved. Repeat chest x-ray will be ordered today. 4. Type 2 diabetes mellitus, new onset. Medications have been started. Last few blood sugars were 255 and 292. Readjustments. JUAN HOLDER MD CM:PNTRANS 0640 JUAN HOLDER MD 06/11/19 0641 interface
--- NOTE | ~2019-06-08 | EKG ---
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 : 1970 Requested By: MIGUEL READ Order Number: [id number] Reading MD: Dmitry Schaefer Measurements Intervals [place] Rate: 113 P: 67 ND: 185 QRS: 95 QRSD: 86 T: 18 QT: 341 QTc: 468 Interpretive Statements Sinus tachycardia Probable left atrial enlargement Borderline right axis deviation Borderline ST elevation, lateral leads Baseline wander in lead(s) V6 Compared to ECG 01/23/2019 15:25:41 T-wave abnormality no longer present ST (T wave) deviation still present Electronically Signed On 06-09-2019 8:41:06 PDT by Dmitry Schaefer CM:EKGRPT:ELECTROCARDIOGRAM REPORT [id number] 0841 MIGUEL BOLTON DRAFT REPORT MIGUEL BACK
--- NOTE | ~2019-06-08 | CON ---
[place], [place] REPORT OF CONSULTATION NAME: RUBI WYNN [facility] #: [id number] UNIT #: [id number] ROOM: 408 DOCTOR: DARLIN SOMMER MD BIRTHDATE: [birth year] DOS: 06/09/2019 PULMONARY CONSULTATION, EVALUATION AND MANAGEMENT REASON FOR CONSULTATION: For assessment of current ongoing abnormal respiratory symptoms, coughing, wheezing and shortness of breath. HISTORY OF PRESENT ILLNESS: This is a 49-year-old white female patient stated that she has been diagnosed with history of COPD by the primary care physician. She presented to the hospital has been noted acutely ill for the past 3 weeks with gradual worsening of the respiratory symptom. She stated symptoms of coughing with chest congestion without any sputum expectoration. She was also reporting symptoms of increased shortness of breath occurring with exertion and wheezing and chest tightness without any chest pain. Symptoms of orthopnea was reported. Also complains symptoms of sore throat. She has been treated outpatient with the use of the Z-LUDIVINA, Augmentin and 2 courses of Medrol Dosepak without any improvement in symptoms. She presented to the hospital Emergency Room, where she has been assessed and hospitalized. She was also complaining of progressive edema of the lower extremities. REVIEW OF SYSTEMS: CONSTITUTIONAL: Fatigue and tiredness reported. Denies symptoms of fever or chills. EYES: Denies any burning, redness, or tenderness. CARDIOVASCULAR: The patient was reported symptoms of orthopnea seemed to be better from yesterday. Increased edema of lower extremities noted. There were no symptoms of palpitations or angina pain. GASTROINTESTINAL: Denies dysphagia, nausea, vomiting, diarrhea, or abnormal weight loss. History of chronic severe obesity, known. GENITOURINARY SYMPTOMS: No dysuria, suprapubic pain, or hematuria. MUSCULOSKELETAL: No acute joint pain, redness, or tenderness. SKIN: No lesions or rashes. CENTRAL NERVOUS SYSTEM: Denies dizziness, diplopia or syncopal episodes. Remaining systems were reviewed. They were noted all negative. PAST MEDICAL HISTORY: 1. The patient noted with diagnosis stated by the patient's chronic obstructive pulmonary disease. 2. General anxiety disorder. 3. Severe obesity. 4. Intervertebral disk disease. 5. History of major depression. SOCIAL HISTORY: Stated by the patient. She lives at home. She is , has 2 children, nonsmoker lifetime, but has been exposed to secondhand smoke. PAST SURGICAL HISTORY: Reported left hip surgery after the trauma. FAMILY HISTORY: Father at 59 years with complication of brain aneurysm. [place], [place] REPORT OF CONSULTATION NAME: RUBI WYNN UNIT #: [id number] ROOM: [facility] DOCTOR: DARLIN SOMMER MD BIRTHDATE: [birth year] Mother at 49 years with history of lung cancer. HOME MEDICATIONS: Listed as use of Voltaren, Flexeril, Xanax, Cymbalta, gabapentin, Hycodan, Seroquel and Zantac. Current medications, which were actively used administered were Cymbalta, Seroquel, metoprolol succinate, diclofenac, sodium, Lasix, Solu-Medrol 30 mg every 8 hours, levalbuterol, gabapentin, Flexeril, Zithromax and Xanax. DRUG ALLERGIES: Noted no known drug allergies. PHYSICAL EXAMINATION: GENERAL: This is a 49-year-old female currently noted to be awake and alert without any distress. Height of 5 feet 6 inches, weight ____ pounds, BMI 49.4. VITAL SIGNS: Normal temperature since yesterday. Last 24 hours of admission, the temperature noted as normal. Respiratory rate 18-20, heart rate of 179 to mild sinus tachycardia, blood pressure 150/90-151/94, pulse ox saturation on admission room air 92% saturation, later 94% saturation recorded. HEENT: Chronic severe obesity. Head was atraumatic. Eyes nonicterus. Decreased posterior pharyngeal space. High tongue base crowding of soft tissue structures. CARDIOVASCULAR: S1, S2 audible. LUNGS: Noted general reduction in breath sounds were noted with question of wheezing. No crackles. ABDOMEN: Soft with chronic severe obesity. Bowel sounds present. No tenderness. EXTREMITIES: Chronic obesity findings at the present time. MUSCULOSKELETAL: Noted without any acute deformities. CENTRAL NERVOUS SYSTEM: Cranial nerves 2-12 intact. VISIBLE SKIN: Without lesions or rashes. LABORATORY DATA: CBC on 06/08/2019 was noted as normal WBC count, 9.7 hemoglobin and hematocrit normal, platelet count normal, eosinophils of 2.2%. The PT, PTT were noted as normal. CMP that was done 06/08/2019, normal BUN and creatinine, glucose 217, potassium 3.3. The LFTs, albumin is 2.7, total protein of 6.2. AST, ALT were normal. Troponin was noted as ____ normal yesterday and this morning. Chest x-ray was noted limited because of large body habitus, but there was no gross area of pulmonary infiltration, consolidation. Pleural fluids were seen. CT of the chest that was also completed last night, which was ordered in the Emergency Room was reviewed, does not show any evidence of pulmonary infiltration. Ground glass opacity was noted in the lungs bilaterally. There were no significant pleural fluids were seen. There was no significant mediastinal or hilar lymphadenopathy. A very small bilateral pleural effusions were seen. IMPRESSION: 1. The patient who has been currently admitted to the hospital seemed to have a combination of acute exacerbation of bronchial asthma, eosinophilia as well as acute congestive heart failure, possibly diastolic dysfunction should be [place], [place] REPORT OF CONSULTATION NAME: RUBI WYNN UNIT #: [id number] ROOM: [facility] DOCTOR: DARLIN SOMMER MD BIRTHDATE: [birth year] considered and excluded. 2. Severe morbid obesity, suspicion of obstructive sleep apnea disorder. 3. Elevation of glucose with consideration of diabetes mellitus as well. 4. Other reason could be steroid-induced hyperglycemia, since the patient has been recently using the steroids as an outpatient. PLAN OF MANAGEMENT: Diuretic therapy to be continued. Antibiotic may be discontinued. Continue Solu-Medrol. Reduction of steroids based on improvement in the symptoms. Bronchodilator to be administered as previously. Outpatient assessment would be recommended post-discharge for comprehensive pulmonary disease, which is suspected more of bronchial asthma than COPD, stated by the patient. DARLIN BELLAMY MD CM:CONSTR:REPORT OF CONSULTATION 1213 06/09/19 1544 interface
--- NOTE | ~2019-06-08 | PR ---
[place], [place] PROGRESS NOTE NAME: RUBI WYNN UNIT #: [id number] ROOM: 426 DOCTOR: MIA ARCE MD,DARLIN BIRTHDATE: [birth year] DOS: 06/11/2019 SUBJECTIVE: She has been noted comfortable at this time. Noted marked improvement and resolution of the edema of the lower extremity in the last 24 hours. Respiratory symptoms and other gradually resolving. Denies symptoms of fever or chills, coughing or any sputum expectoration reported. OBJECTIVE: VITAL SIGNS: This morning, normal temperature, respiratory rate 16, heart rate 102, blood pressure 141/94. Pulse ox saturation on room air was 94% saturation recorded. HEENT: Examination shows chronic obesity. Decreased posterior pharyngeal space, high tongue base and crowding of soft tissue structures. CARDIOVASCULAR: S1, S2 audible. LUNGS: Noted continued improvement in air entry of the lungs without any wheezing today. ABDOMEN: Soft, nontender. EXTREMITIES: Resolution of the edema. Chronic obesity findings. IMPRESSION: 1. Gradual progressive resolution of acute exacerbation of bronchial asthma. 2. Chronic obesity. 3. Congestive heart failure, diastolic dysfunction. PLAN OF TREATMENT: Decrease the Solu-Medrol dose to 30 mg daily today. Possible discharge home in the morning would be considered. DARLIN BELLAMY MD CM:PNTRANS [id number] DARLIN ARCE MD 06/11/192040 interface
[2019-06-08 21:20] VITALS: BP 151/94
[2019-06-08] MEDS ORDERED: CYMBALTA60 MG PO (21:57)
[2019-06-08] MEDS ORDERED: NEURONTIN300 MG PO (21:58)
[2019-06-08 22:18] LABS: BASO % 0.2 % (0.0-1.0); EOS # 0.2 10*3/uL (0.0-0.4); EOS % 2.2 % (1.0-4.0); HEMATOCRIT 38.6 % (37.0-47.0); HEMOGLOBIN 12.2 g/dl (12.0-16.0); LYMPH % 20.4 % (27.0-41.0); MEAN CELL VOLUME 81.8 fl (81.0-99.0); MEAN CORPUSCULAR HGB 25.8 pg (27.0-31.0); MEAN CORPUSCULAR HGB CONC 31.6 g/dl (33.0-37.0); MEAN PLATELET VOLUME 9.1 fl (9.6-12.3); MONO # 0.5 10*3/uL (0.1-1.0); MONO % 5.2 % (3.0-9.0); NEUT # 6.9 10*3/uL (2.3-7.9); NEUT % 71.1 % (47.0-73.0); PLATELET COUNT AUTOMATED 167 10*3/uL (130-400); RED BLOOD COUNT 4.72 10*6/uL (4.10-5.10); RED CELL DISTRI WIDTH 15.5 % (0-14.5); WHITE BLOOD COUNT 9.7 10*3/uL (4.8-10.8)
[2019-06-08 22:29] LABS: INTERNATIONAL NORM RATIO 0.9 (2.0-3.5)
[2019-06-08 22:35] LABS: ALBUMIN 2.7 gm/dl (3.1-4.5); ALKALINE PHOSPHATASE 68 U/L (45-117); BUN 12 mg/dl (7-24); CHLORIDE 102 mmol/L (98-107); CREATININE 0.94 mg/dL (0.55-1.02); POTASSIUM 3.3 mmol/L (3.5-5.1); SGOT/AST 15 IU/L (3-35); SGPT/ALT 34 U/L (12-78); SODIUM 138 mmol/L (136-145); TOTAL PROTEIN 6.2 gm/dL (6.4-8.2)
[2019-06-08 22:39] LABS: TROPONIN I < 0.015 ng/ml (<0.045)
[2019-06-09 00:42] VITALS: BP 152/92
--- NOTE | 2019-06-09 00:42 | NUR ---
A 49, admitted to , under the services of JUAN Aguila MD with a diagnosis of NEW ONSET OF CONGESTIVE HEART FAILURE. Chief complaint is COUGH, CONGESTION, SHORTNESS OF BREATH. Patient arrived via ambulatory from ER. Monitor applied. Initial assessment completed. Vital signs taken and recorded. JUAN AGUILA MD notified of admission to the unit. Orders received. See assessment for past medical history, medications and allergies. Patient and/or family oriented to unit. visitation policy reviewed. Clothing/patient valuable form completed. JENNIFER LUCAS
[2019-06-09] MEDS ORDERED: VOLTAREN50 M1 PO (01:27)
[2019-06-09] MEDS ORDERED: HYCODAN/HYDROMET5 ML PO (01:29)
[2019-06-09] MEDS ORDERED: ZANTAC 300300 MG PO (01:30)
--- NOTE | 2019-06-09 03:38 | NUR ---
DR. HOLDER NOTIFIED OF CRITICAL LACTIC ACID OF 3.9. NEW ORDER FOR NORMAL SALINE AT 100CC/HR.
[2019-06-09 12:00] VITALS: BP 160/94
[2019-06-09 16:00] VITALS: BP 132/96
[2019-06-09 20:00] VITALS: BP 130/88; BP 145/94
[2019-06-10] VITALS: BP 140/82
[2019-06-10 06:57] LABS: BASO % 0.1 % (0.0-1.0); EOS % 0.1 % (1.0-4.0); HEMATOCRIT 38.8 % (37.0-47.0); HEMOGLOBIN 12.1 g/dl (12.0-16.0); LYMPH # 1.2 10*3/uL (1.3-4.4); LYMPH % 6.8 % (27.0-41.0); MEAN CELL VOLUME 82.2 fl (81.0-99.0); MEAN CORPUSCULAR HGB 25.6 pg (27.0-31.0); MEAN CORPUSCULAR HGB CONC 31.2 g/dl (33.0-37.0); MEAN PLATELET VOLUME 9.4 fl (9.6-12.3); MONO # 0.8 10*3/uL (0.1-1.0); MONO % 4.4 % (3.0-9.0); NEUT # 14.7 10*3/uL (2.3-7.9); NEUT % 86.8 % (47.0-73.0); PLATELET COUNT AUTOMATED 193 10*3/uL (130-400); RED BLOOD COUNT 4.72 10*6/uL (4.10-5.10); RED CELL DISTRI WIDTH 15.9 % (0-14.5); WHITE BLOOD COUNT 16.9 10*3/uL (4.8-10.8)
[2019-06-10 07:30] LABS: CHLORIDE 102 mmol/L (98-107); POTASSIUM 4.1 mmol/L (3.5-5.1); SODIUM 139 mmol/L (136-145)
[2019-06-10 07:38] LABS: BUN 20 mg/dl (7-24); CREATININE 0.97 mg/dL (0.55-1.02)
--- NOTE | 2019-06-10 09:00 | NUR ---
Retail Administrative Assistant in to talk to patient. Patient states lives at home with her fiance. There are basement steps in the home. Physician: Dr. Glenn Jiménez Pharmacy: [facility] Home health services: none Patient's level of ADLs: INDEPENDENT Patient has working utilities: yes DME: none Follow-up physician's appointment after d/c: she prefers to make her own follow up appt after discharge Does patient want to access PORTAL?: no Discharge plan discussed with patient. She lives at home with her fiance. She is independent in her ADLs and ambulation. Discussed home health care services and she denies any home needs at this time. When medically stable she will be discharged to home. AGUSTINA JUSTICE
[2019-06-10 12:00] VITALS: BP 122/77
--- NOTE | 2019-06-10 13:45 | NUR ---
Per request of patient to shower, called Dr. Monzon. Reviewed patients cardiac status and vitals. 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
--- NOTE | 2019-06-10 14:50 | NUR ---
A 49, admitted to , under the services of JUAN Aguila MD with a diagnosis of UTI Symptomatic Anemia. Chief complaint is Basic needs/Other complaints. Patient arrived via stretcher from ER. Monitor applied. Initial assessment completed. Vital signs taken and recorded. JUAN AGUILA MD notified of admission to the unit. Orders received. See assessment for past medical history, medications and allergies. Patient and/or family oriented to unit. [address] visitation policy reviewed. Clothing/patient valuable form completed. GERARDO BENJAMIN
[2019-06-10 16:00] VITALS: BP 139/84
[2019-06-10 20:00] VITALS: BP 148/97
[2019-06-11] VITALS: BP 132/79
[2019-06-11 08:00] VITALS: BP 141/94
[2019-06-11 11:33] VITALS: BP 147/97
[2019-06-11 15:59] VITALS: BP 140/81
[2019-06-11 20:00] VITALS: BP 149/90
[2019-06-12] VITALS: BP 126/77
[2019-06-12] MEDS ORDERED: GLIMEPIRIDE4 M1 PO (05:24)
[2019-06-12] MEDS ORDERED: PREDNISONE5 MG PO (05:24)
[2019-06-12] MEDS ORDERED: LOPRESSOR50 M1 PO (05:28)
[2019-06-12] MEDS ORDERED: ASMANEX110 MC1 INH (05:28)
[2019-06-12] MEDS ORDERED: CEFUROXIME AXE250 MG PO (05:28)
[2019-06-12] MEDS ORDERED: Ipratropium Brom3 ML INH (05:28)
--- NOTE | 2019-06-12 11:58 | NUR ---
Discharge instructions reviewed with patient/family. Patient receptive and verbalizes understanding. Follow-up care arranged. Written instructions given to patient/family. BISI SIMPSON
== END 2019-06-12 11:58 | disposition home or self-care (01) | DRG 291 ==
LOC: ED 21:19 → 4E 06-09 00:18 → EDHOLD 06-09 00:18 → 4E 06-09 01:01
PROVIDERS: Physician Assistant; ADMIT Internal Medicine
DX: I11.0 Hypertensive heart disease with heart failure (principal); I50.31 Acute diastolic (congestive) heart failure; F33.0 Major depressive disorder, recurrent, mild; E87.2 Acidosis; J45.41 Moderate persistent asthma with (acute) exacerbation; Z68.42 Body mass index [BMI] 45.0-49.9, adult; E66.01 Morbid (severe) obesity due to excess calories; E11.9 Type 2 diabetes mellitus without complications; D72.829 Elevated white blood cell count, unspecified; R00.1 Bradycardia, unspecified; F41.1 Generalized anxiety disorder; G89.29 Other chronic pain; M54.5 Low back pain; J44.9 Chronic obstructive pulmonary disease, unspecified; Z98.51 Tubal ligation status; Z90.710 Acquired absence of both cervix and uterus; Z80.1 Family history of malignant neoplasm of trachea, bronchus and lung; Z80.8 Family history of malignant neoplasm of other organs or systems; Z71.3 Dietary counseling and surveillance; Z84.89 Family history of other specified conditions

== ENCOUNTER → 2019-08-04 | Outpatient (CLI) | payer OTHER ==
[~2019-08-04] MED LIST changes: +ASMANEX110 MC1 INH; +CEFUROXIME AXE250 MG PO; +CYMBALTA60 MG PO; +GLIMEPIRIDE4 M1 PO; +Ipratropium Brom3 ML INH; +LOPRESSOR50 M1 PO; +MUCINEX DM 30/61 TAB PO; +NEURONTIN300 MG PO; +PREDNISONE20 M1 PO; +PREDNISONE5 MG PO; +TESSALON PERLE100 M1 PO; +VOLTAREN50 M1 PO; +ZANTAC 300300 MG PO; +ZOFRAN4 MG PO
== END | disposition home or self-care (01) ==
LOC: RAD 12:19
DX: R06.02 Shortness of breath (principal); J45.909 Unspecified asthma, uncomplicated; I50.9 Heart failure, unspecified; J44.9 Chronic obstructive pulmonary disease, unspecified; E11.9 Type 2 diabetes mellitus without complications

== ENCOUNTER 2019-08-20 23:53 | Emergency (ER) | payer OTHER ==
[~2019-08-20] VITALS: Ht 167.6 cm; Wt 133.8 kg
--- NOTE | ~2019-08-20 | EKG ---
[place], [place] ELECTROCARDIOGRAM REPORT NAME: RUBI WYNN UNIT #: [id number] ROOM: DOCTOR: EPIPHANY DRAFT REPORT BIRTHDATE: [birth year] [facility] Test Date: 2019-08-21 Test Time: 00:36:55 Pat Name: RUBI WYNN Department: Room: Gender: F Reference Library Assistant: : 1970 Requested By: MALIA SALCIDO Order Number: [id number] Reading MD: Kar Wong MD Measurements Intervals [place] Rate: 87 P: 40 FL: 204 QRS: 82 QRSD: 91 T: 54 QT: 367 QTc: 442 Interpretive Statements Sinus rhythm Borderline prolonged FL interval Consider left atrial enlargement Nonspecific T abnormalities, anterior leads Minimal ST elevation, inferior leads Baseline wander in lead(s) V3,V4 Compared to ECG 06/09/2019 03:46:38 T-wave abnormality now present Sinus tachycardia no longer present ST (T wave) deviation still present Electronically Signed On 08-22-2019 9:40:46 PDT by Kar Wong MD CM:EKGRPT:ELECTROCARDIOGRAM REPORT [id number] MALIA SALCIDO MD EPIPHANY DRAFT REPORT MALIA SALCIDO MD
[~2019-08-20 23:53] MED LIST changes: -MUCINEX DM 30/61 TAB PO; -PREDNISONE20 M1 PO; -TESSALON PERLE100 M1 PO; -ZOFRAN4 MG PO
[2019-08-21 00:46] LABS: BASO % 0.3 % (0.0-1.0); EOS # 0.3 10*3/uL (0.0-0.4); EOS % 3.4 % (1.0-4.0); HEMATOCRIT 38.3 % (37.0-47.0); HEMOGLOBIN 12.3 g/dl (12.0-16.0); LYMPH # 1.6 10*3/uL (1.3-4.4); LYMPH % 18.6 % (27.0-41.0); MEAN CELL VOLUME 83.6 fl (81.0-99.0); MEAN CORPUSCULAR HGB 26.9 pg (27.0-31.0); MEAN CORPUSCULAR HGB CONC 32.1 g/dl (33.0-37.0); MEAN PLATELET VOLUME 9.2 fl (9.6-12.3); MONO # 0.6 10*3/uL (0.1-1.0); MONO % 6.2 % (3.0-9.0); NEUT # 6.2 10*3/uL (2.3-7.9); NEUT % 70.4 % (47.0-73.0); PLATELET COUNT AUTOMATED 188 10*3/uL (130-400); RED BLOOD COUNT 4.58 10*6/uL (4.10-5.10); RED CELL DISTRI WIDTH 14.4 % (0-14.5); WHITE BLOOD COUNT 8.8 10*3/uL (4.8-10.8)
[2019-08-21 00:57] LABS: ACT PARTIAL THROMBO TIME 25.3 SECONDS (20.0-32.1); INTERNATIONAL NORM RATIO 0.9 (2.0-3.5)
[2019-08-21 01:01] LABS: ALBUMIN 2.9 gm/dl (3.1-4.5); ALKALINE PHOSPHATASE 78 U/L (45-117); BUN 11 mg/dl (7-24); CHLORIDE 103 mmol/L (98-107); CREATININE 0.94 mg/dL (0.55-1.02); LIPASE 88 U/L (73-393); POTASSIUM 3.5 mmol/L (3.5-5.1); SGOT/AST 27 IU/L (3-35); SGPT/ALT 34 U/L (12-78); SODIUM 139 mmol/L (136-145); TOTAL PROTEIN 6.5 gm/dL (6.4-8.2)
[2019-08-21 01:09] LABS: TROPONIN I < 0.015 ng/ml (<0.045)
[2019-08-21] MEDS ORDERED: MUCINEX DM 30/61 TAB PO (01:40)
== END 2019-08-21 02:23 | disposition home or self-care (01) ==
LOC: ED 23:53
PROVIDERS: Emergency Medicine Emergency Medical Services
DX: J20.9 Acute bronchitis, unspecified (principal); J45.909 Unspecified asthma, uncomplicated; E88.09 Other disorders of plasma-protein metabolism, not elsewhere classified

== ENCOUNTER 2019-09-07 16:56 | Emergency (ER) | payer OTHER ==
[~2019-09-07 16:56] MED LIST changes: +MUCINEX DM 30/61 TAB PO
[2019-09-07 17:37] LABS: BILIRUBIN NEGATIVE (NEGATIVE); BLOOD 1+ (NEGATIVE); CLARITY SL CLOUDY (CLEAR); COLOR YELLOW (YELLOW); GLUCOSE NEGATIVE (NEGATIVE); KETONE NEGATIVE (NEGATIVE); LEUKO ESTERASE NEGATIVE (NEGATIVE); NITRITE NEGATIVE (NEGATIVE); PH 6.5 (5.0-9.0); SPECIFIC GRAVITY 1.025 (1.005-1.030); UROBILINOGEN 0.2 E.U./dl (0.2-1.0)
[2019-09-07 17:49] LABS: BACTERIA 1+; WBC 0-2 wbc/hpf (0-5)
[2019-09-07 18:26] LABS: BASO % 0.4 % (0.0-1.0); EOS # 0.3 10*3/uL (0.0-0.4); HEMATOCRIT 42.1 % (37.0-47.0); HEMOGLOBIN 13.3 g/dl (12.0-16.0); LYMPH # 1.8 10*3/uL (1.3-4.4); MEAN CELL VOLUME 83.7 fl (81.0-99.0); MEAN CORPUSCULAR HGB 26.4 pg (27.0-31.0); MEAN CORPUSCULAR HGB CONC 31.6 g/dl (33.0-37.0); MONO # 0.7 10*3/uL (0.1-1.0); MONO % 5.8 % (3.0-9.0); NEUT # 8.3 10*3/uL (2.3-7.9); NEUT % 74.2 % (47.0-73.0); PLATELET COUNT AUTOMATED 192 10*3/uL (130-400); RED BLOOD COUNT 5.03 10*6/uL (4.10-5.10); RED CELL DISTRI WIDTH 14.3 % (0-14.5); WHITE BLOOD COUNT 11.2 10*3/uL (4.8-10.8)
[2019-09-07 18:40] LABS: ALBUMIN 3.2 gm/dl (3.1-4.5); ALKALINE PHOSPHATASE 77 U/L (45-117); BUN 14 mg/dl (7-24); CHLORIDE 99 mmol/L (98-107); CREATININE 0.81 mg/dL (0.55-1.02); LIPASE 75 U/L (73-393); POTASSIUM 3.6 mmol/L (3.5-5.1); SGOT/AST 20 IU/L (3-35); SGPT/ALT 32 U/L (12-78); SODIUM 137 mmol/L (136-145); TOTAL PROTEIN 6.7 gm/dL (6.4-8.2)
== END 2019-09-07 21:40 ==
LOC: ED 16:56
PROVIDERS: Nurse Practitioner Family
DX: K57.30 Diverticulosis of large intestine without perforation or abscess without bleeding (principal); J45.909 Unspecified asthma, uncomplicated; Z98.890 Other specified postprocedural states; Z98.51 Tubal ligation status; Z90.710 Acquired absence of both cervix and uterus; Z79.899 Other long term (current) drug therapy

== ENCOUNTER → 2019-10-05 | Outpatient (CLI) | payer OTHER | END | disposition home or self-care (01) | LOC: RAD 11:01 | DX: N20.0 Calculus of kidney (principal); R10.31 Right lower quadrant pain ==

== ENCOUNTER 2019-10-19 16:18 | Emergency (ER) | payer OTHER ==
[~2019-10-19] VITALS: Ht 167.6 cm; Wt 133.8 kg
[2019-10-19 16:41] LABS: BILIRUBIN NEGATIVE (NEGATIVE); BLOOD TRACE-INTACT (NEGATIVE); CLARITY SL CLOUDY (CLEAR); COLOR YELLOW (YELLOW); GLUCOSE NEGATIVE (NEGATIVE); KETONE NEGATIVE (NEGATIVE); LEUKO ESTERASE NEGATIVE (NEGATIVE); NITRITE NEGATIVE (NEGATIVE); UROBILINOGEN 0.2 E.U./dl (0.2-1.0)
[2019-10-19 16:51] LABS: RBC 0-2 rbc/hpf (0-2)
[2019-10-19 17:02] LABS: BASO # 0.1 10*3/uL (0.0-0.1); BASO % 0.4 % (0.0-1.0); EOS # 0.5 10*3/uL (0.0-0.4); EOS % 3.9 % (1.0-4.0); HEMATOCRIT 44.1 % (37.0-47.0); HEMOGLOBIN 13.8 g/dl (12.0-16.0); LYMPH # 1.9 10*3/uL (1.3-4.4); LYMPH % 15.1 % (27.0-41.0); MEAN CELL VOLUME 83.4 fl (81.0-99.0); MEAN CORPUSCULAR HGB 26.1 pg (27.0-31.0); MEAN CORPUSCULAR HGB CONC 31.3 g/dl (33.0-37.0); MEAN PLATELET VOLUME 9.2 fl (9.6-12.3); MONO # 0.8 10*3/uL (0.1-1.0); MONO % 6.2 % (3.0-9.0); NEUT # 9.5 10*3/uL (2.3-7.9); NEUT % 73.6 % (47.0-73.0); PLATELET COUNT AUTOMATED 219 10*3/uL (130-400); RED BLOOD COUNT 5.29 10*6/uL (4.10-5.10); RED CELL DISTRI WIDTH 13.4 % (0-14.5); WHITE BLOOD COUNT 12.9 10*3/uL (4.8-10.8)
[2019-10-19 17:19] LABS: ALBUMIN 3.4 gm/dl (3.1-4.5); BUN 12 mg/dl (7-24); CHLORIDE 96 mmol/L (98-107); CREATININE 0.89 mg/dL (0.55-1.02); LIPASE 107 U/L (73-393); POTASSIUM 3.6 mmol/L (3.5-5.1); SGOT/AST 25 IU/L (3-35); SGPT/ALT 38 U/L (12-78); SODIUM 135 mmol/L (136-145); TOTAL PROTEIN 7.6 gm/dL (6.4-8.2)
[2019-10-19 17:20] LABS: ALKALINE PHOSPHATASE 91 U/L (45-117)
[2019-10-19] MEDS ORDERED: ZOFRAN4 MG PO (19:21)
== END 2019-10-19 19:30 | disposition home or self-care (01) ==
LOC: ED 16:18
PROVIDERS: Physician Assistant
DX: N23 Unspecified renal colic (principal); Z79.899 Other long term (current) drug therapy; Z87.442 Personal history of urinary calculi; Z90.710 Acquired absence of both cervix and uterus

== ENCOUNTER 2019-10-21 20:38 | Emergency (ER) | payer OTHER ==
[~2019-10-21] VITALS: Ht 167.6 cm; Wt 133.8 kg
[~2019-10-21 20:38] MED LIST changes: +ZOFRAN4 MG PO
[2019-10-21 21:21] LABS: BASO % 0.3 % (0.0-1.0); EOS # 0.4 10*3/uL (0.0-0.4); EOS % 3.1 % (1.0-4.0); HEMATOCRIT 40.2 % (37.0-47.0); HEMOGLOBIN 12.4 g/dl (12.0-16.0); LYMPH # 1.6 10*3/uL (1.3-4.4); LYMPH % 12.5 % (27.0-41.0); MEAN CELL VOLUME 84.1 fl (81.0-99.0); MEAN CORPUSCULAR HGB 25.9 pg (27.0-31.0); MEAN CORPUSCULAR HGB CONC 30.8 g/dl (33.0-37.0); MEAN PLATELET VOLUME 9.3 fl (9.6-12.3); MONO # 0.8 10*3/uL (0.1-1.0); MONO % 6.3 % (3.0-9.0); NEUT # 9.6 10*3/uL (2.3-7.9); NEUT % 76.8 % (47.0-73.0); PLATELET COUNT AUTOMATED 176 10*3/uL (130-400); RED BLOOD COUNT 4.78 10*6/uL (4.10-5.10); RED CELL DISTRI WIDTH 13.2 % (0-14.5); WHITE BLOOD COUNT 12.4 10*3/uL (4.8-10.8)
[2019-10-21 21:36] LABS: ACT PARTIAL THROMBO TIME 22.1 SECONDS (20.0-32.1); INTERNATIONAL NORM RATIO 0.9 (2.0-3.5)
[2019-10-21 21:38] LABS: ALBUMIN 2.9 gm/dl (3.1-4.5); ALKALINE PHOSPHATASE 79 U/L (45-117); BUN 15 mg/dl (7-24); CHLORIDE 102 mmol/L (98-107); CREATININE 0.86 mg/dL (0.55-1.02); POTASSIUM 3.6 mmol/L (3.5-5.1); SGOT/AST 28 IU/L (3-35); SGPT/ALT 35 U/L (12-78); SODIUM 140 mmol/L (136-145); TOTAL PROTEIN 6.6 gm/dL (6.4-8.2)
[2019-10-21 21:40] LABS: TROPONIN I < 0.015 ng/ml (<0.045)
[2019-10-21] MEDS ORDERED: PREDNISONE20 M1 PO (22:28)
[2019-10-21] MEDS ORDERED: TESSALON PERLE100 M1 PO (22:28)
== END 2019-10-21 22:36 | disposition home or self-care (01) ==
LOC: ED 20:38
PROVIDERS: Physician Assistant
DX: J40 Bronchitis, not specified as acute or chronic (principal); I50.9 Heart failure, unspecified; R60.0 Localized edema; R10.30 Lower abdominal pain, unspecified; G89.29 Other chronic pain

== ENCOUNTER 2019-12-15 12:16 | Emergency (ER) | payer OTHER ==
[~2019-12-15 12:16] MED LIST changes: +PREDNISONE20 M1 PO; +TESSALON PERLE100 M1 PO
[2019-12-15 14:40] LABS: HEMATOCRIT 39.7 % (37.0-47.0); HEMOGLOBIN 12.5 g/dl (12.0-16.0); MEAN CELL VOLUME 84.1 fl (81.0-99.0); MEAN CORPUSCULAR HGB 26.5 pg (27.0-31.0); MEAN CORPUSCULAR HGB CONC 31.5 g/dl (33.0-37.0); MEAN PLATELET VOLUME 8.9 fl (9.6-12.3); PLATELET COUNT AUTOMATED 176 10*3/uL (130-400); RED BLOOD COUNT 4.72 10*6/uL (4.10-5.10); RED CELL DISTRI WIDTH 14.2 % (0-14.5); WHITE BLOOD COUNT 9.7 10*3/uL (4.8-10.8)
[2019-12-15 14:49] LABS: INTERNATIONAL NORM RATIO 0.9 (2.0-3.5)
[2019-12-15 14:57] LABS: ALKALINE PHOSPHATASE 79 U/L (45-117); BUN 16 mg/dl (7-24); CHLORIDE 107 mmol/L (98-107); CREATININE 0.72 mg/dL (0.55-1.02); LIPASE 76 U/L (73-393); POTASSIUM 3.9 mmol/L (3.5-5.1); SGOT/AST 28 IU/L (3-35); SGPT/ALT 35 U/L (12-78); SODIUM 138 mmol/L (136-145); TOTAL PROTEIN 6.4 gm/dL (6.4-8.2)
[2019-12-15 14:58] LABS: TROPONIN I < 0.015 ng/ml (<0.045)
[2019-12-15 15:02] LABS: PLATELET SUFFICIENCY NORMAL (NORMAL); TOTAL CELLS COUNTED 100 #CELLS
[2019-12-15 15:03] LABS: OVALOCYTES FEW
[2019-12-15] MEDS ORDERED: PROVENTIL HFA6.7 GM INH (15:52)
[2019-12-15] MEDS ORDERED: TESSALON PERLE100 M1 PO (15:52)
== END 2019-12-15 16:10 | disposition home or self-care (01) ==
LOC: ED 12:16
PROVIDERS: Physician Assistant
DX: J40 Bronchitis, not specified as acute or chronic (principal); R42 Dizziness and giddiness; Z79.899 Other long term (current) drug therapy; Z90.710 Acquired absence of both cervix and uterus; Z87.442 Personal history of urinary calculi

== ENCOUNTER 2019-12-17 18:04 | Emergency (ER) | payer OTHER ==
[~2019-12-17] VITALS: Ht 167.6 cm; Wt 131.5 kg
[~2019-12-17 18:04] MED LIST changes: +PROVENTIL HFA6.7 GM INH
[2019-12-17 18:40] LABS: BILIRUBIN NEGATIVE (NEGATIVE); CLARITY SL CLOUDY (CLEAR); COLOR YELLOW (YELLOW); GLUCOSE NEGATIVE (NEGATIVE); KETONE TRACE (NEGATIVE)
[2019-12-17 18:41] LABS: BLOOD TRACE-INTACT (NEGATIVE); LEUKO ESTERASE NEGATIVE (NEGATIVE); NITRITE NEGATIVE (NEGATIVE); UROBILINOGEN 0.2 E.U./dl (0.2-1.0)
[2019-12-17 18:48] LABS: RBC 0-2 rbc/hpf (0-2)
[2019-12-17 18:49] LABS: BACTERIA 2+; EPITHELIAL CELLS 15-20
[2019-12-17 18:49] LABS: BASO # 0.1 10*3/uL (0.0-0.1); BASO % 0.4 % (0.0-1.0); EOS # 0.4 10*3/uL (0.0-0.4); EOS % 2.8 % (1.0-4.0); HEMATOCRIT 41.7 % (37.0-47.0); HEMOGLOBIN 13.2 g/dl (12.0-16.0); LYMPH # 1.6 10*3/uL (1.3-4.4); LYMPH % 12.8 % (27.0-41.0); MEAN CELL VOLUME 83.1 fl (81.0-99.0); MEAN CORPUSCULAR HGB 26.3 pg (27.0-31.0); MEAN CORPUSCULAR HGB CONC 31.7 g/dl (33.0-37.0); MEAN PLATELET VOLUME 9.5 fl (9.6-12.3); MONO # 0.7 10*3/uL (0.1-1.0); MONO % 5.6 % (3.0-9.0); NEUT # 9.8 10*3/uL (2.3-7.9); NEUT % 76.8 % (47.0-73.0); PLATELET COUNT AUTOMATED 202 10*3/uL (130-400); RED BLOOD COUNT 5.02 10*6/uL (4.10-5.10); RED CELL DISTRI WIDTH 14.6 % (0-14.5); WHITE BLOOD COUNT 12.7 10*3/uL (4.8-10.8)
[2019-12-17 19:04] LABS: ALBUMIN 3.2 gm/dl (3.1-4.5); ALKALINE PHOSPHATASE 82 U/L (45-117); BUN 14 mg/dl (7-24); CHLORIDE 104 mmol/L (98-107); CREATININE 1.02 mg/dL (0.55-1.02); POTASSIUM 3.7 mmol/L (3.5-5.1); SGOT/AST 38 IU/L (3-35); SGPT/ALT 44 U/L (12-78); SODIUM 135 mmol/L (136-145); TOTAL PROTEIN 6.9 gm/dL (6.4-8.2)
== END 2019-12-17 21:00 | disposition home or self-care (01) ==
LOC: ED 18:04
PROVIDERS: Nurse Practitioner Family
DX: R10.9 Unspecified abdominal pain (principal); R11.0 Nausea; Z87.442 Personal history of urinary calculi; Z79.899 Other long term (current) drug therapy; Z90.710 Acquired absence of both cervix and uterus

== ENCOUNTER 2020-01-04 17:09 | Emergency (ER) | payer OTHER ==
[~2020-01-04] VITALS: Ht 167.6 cm; Wt 135.2 kg
[2020-01-04 18:21] LABS: BASO % 0.4 % (0.0-1.0); EOS # 0.6 10*3/uL (0.0-0.4); EOS % 5.5 % (1.0-4.0); HEMATOCRIT 40.7 % (37.0-47.0); LYMPH # 1.5 10*3/uL (1.3-4.4); LYMPH % 14.9 % (27.0-41.0); MEAN CELL VOLUME 83.6 fl (81.0-99.0); MEAN CORPUSCULAR HGB 26.7 pg (27.0-31.0); MEAN CORPUSCULAR HGB CONC 31.9 g/dl (33.0-37.0); MEAN PLATELET VOLUME 9.4 fl (9.6-12.3); MONO # 0.6 10*3/uL (0.1-1.0); MONO % 5.6 % (3.0-9.0); NEUT # 7.4 10*3/uL (2.3-7.9); NEUT % 72.4 % (47.0-73.0); PLATELET COUNT AUTOMATED 204 10*3/uL (130-400); RED BLOOD COUNT 4.87 10*6/uL (4.10-5.10); RED CELL DISTRI WIDTH 14.1 % (0-14.5); WHITE BLOOD COUNT 10.2 10*3/uL (4.8-10.8)
[2020-01-04 18:30] LABS: BUN 18 mg/dl (7-24); CHLORIDE 104 mmol/L (98-107); CREATININE 0.86 mg/dL (0.55-1.02); POTASSIUM 3.7 mmol/L (3.5-5.1); SODIUM 138 mmol/L (136-145)
[2020-01-04 19:16] LABS: BILIRUBIN NEGATIVE (NEGATIVE); BLOOD 2+ (NEGATIVE); CLARITY CLOUDY (CLEAR); COLOR YELLOW (YELLOW); GLUCOSE NEGATIVE (NEGATIVE); KETONE NEGATIVE (NEGATIVE); SPECIFIC GRAVITY 1.025 (1.005-1.030)
[2020-01-04 19:17] LABS: LEUKO ESTERASE 2+ (NEGATIVE); NITRITE POSITIVE (NEGATIVE); UROBILINOGEN 0.2 E.U./dl (0.2-1.0)
[2020-01-04 19:21] LABS: WBC TNTC wbc/hpf (0-5)
[2020-01-04 19:22] LABS: BACTERIA 4+; EPITHELIAL CELLS 31-40; MUCOUS 1+
[2020-01-04] MEDS ORDERED: TRAMADOL HCL50 MG PO (20:01)
== END 2020-01-04 20:02 | disposition home or self-care (01) ==
LOC: ED 17:09
PROVIDERS: Emergency Medicine
DX: N20.0 Calculus of kidney (principal); J45.909 Unspecified asthma, uncomplicated; Z90.710 Acquired absence of both cervix and uterus; Z87.442 Personal history of urinary calculi

== ENCOUNTER 2020-01-11 17:15 | Inpatient (IN) | payer OTHER ==
[~2020-01-11] VITALS: Ht 167.6 cm; Wt 135.2 kg
[~2020-01-11 17:15] MED LIST changes: +TRAMADOL HCL50 MG PO
[2020-01-11 17:23] VITALS: BP 150/90
[2020-01-11 18:01] LABS: BASO % 0.3 % (0.0-1.0); EOS # 0.3 10*3/uL (0.0-0.4); EOS % 3.8 % (1.0-4.0); HEMATOCRIT 39.6 % (37.0-47.0); HEMOGLOBIN 12.7 g/dl (12.0-16.0); LYMPH # 0.5 10*3/uL (1.3-4.4); LYMPH % 7.2 % (27.0-41.0); MEAN CORPUSCULAR HGB 26.3 pg (27.0-31.0); MEAN CORPUSCULAR HGB CONC 32.1 g/dl (33.0-37.0); MEAN PLATELET VOLUME 8.5 fl (9.6-12.3); MONO # 0.4 10*3/uL (0.1-1.0); MONO % 6.4 % (3.0-9.0); NEUT # 5.6 10*3/uL (2.3-7.9); NEUT % 81.6 % (47.0-73.0); PLATELET COUNT AUTOMATED 132 10*3/uL (130-400); RED BLOOD COUNT 4.83 10*6/uL (4.10-5.10); RED CELL DISTRI WIDTH 13.8 % (0-14.5); WHITE BLOOD COUNT 6.9 10*3/uL (4.8-10.8)
[2020-01-11 18:16] LABS: ALKALINE PHOSPHATASE 88 U/L (45-117); BUN 9 mg/dl (7-24); CHLORIDE 101 mmol/L (98-107); CREATININE 0.85 mg/dL (0.55-1.02); POTASSIUM 3.6 mmol/L (3.5-5.1); SGOT/AST 35 IU/L (3-35); SGPT/ALT 45 U/L (12-78); SODIUM 136 mmol/L (136-145); TOTAL PROTEIN 6.5 gm/dL (6.4-8.2)
[2020-01-11 18:17] LABS: BILIRUBIN NEGATIVE (NEGATIVE); BLOOD 1+ (NEGATIVE); CLARITY CLEAR (CLEAR); COLOR YELLOW (YELLOW); GLUCOSE NEGATIVE (NEGATIVE); KETONE NEGATIVE (NEGATIVE); LEUKO ESTERASE 1+ (NEGATIVE); NITRITE POSITIVE (NEGATIVE); UROBILINOGEN 0.2 E.U./dl (0.2-1.0)
[2020-01-11 18:18] LABS: BACTERIA 4+; MUCOUS 1+; RBC 0-2 rbc/hpf (0-2); WBC 16-20 wbc/hpf (0-5)
--- NOTE | 2020-01-11 19:43 | NUR ---
pt still having pain isabela shabazz notified call light in reach
[2020-01-11 19:57] VITALS: BP 146/82
--- NOTE | 2020-01-11 20:02 | NUR ---
TORODOL DID NOT HELP WITH THE PAIN NAZANIN CRUZ NOTIFIED
--- NOTE | 2020-01-11 20:12 | NUR ---
PT TO CT AT THIS TIME
--- NOTE | 2020-01-11 21:00 | NUR ---
PT MEDICATED WITH DEMEROL RESTING IN BED FAMILY AT BEDSIDE CALL LIGHT IN REACH
[2020-01-11 21:38] VITALS: BP 151/83
--- NOTE | 2020-01-11 21:49 | NUR ---
RLQ PAIN STILL DR CORBETT NOTIFIED
[2020-01-12] VITALS: BP 134/78
--- NOTE | 2020-01-12 00:02 | NUR ---
PT PLACED IN HOSPITAL BED AT THIS TIME. BED IN LOW POITION . CALL LIGHT IN REACH. SELMA FUENTES RN.
--- NOTE | 2020-01-12 04:26 | NUR ---
PT STATES SHE IS FEELING MUCH BETTER PULSE OX AT 100% ON 2 LITERS. BED IN LOW POSITION SIDE RAILS UP X 2 CALL LIGHT IN REACH. SELMA FUENTES RN.
[2020-01-12 04:28] VITALS: BP 144/70
[2020-01-12 08:09] VITALS: BP 126/81
--- NOTE | 2020-01-12 10:01 | NUR ---
DR. PINA AWARE OF PT SIGNING OUT AMA.
== END 2020-01-12 10:24 | disposition left against medical advice (07) | DRG 141 ==
LOC: ED 17:15 → EDHOLD 23:34
PROVIDERS: Physician Assistant; ADMIT Internal Medicine
DX: J45.41 Moderate persistent asthma with (acute) exacerbation (principal); N39.0 Urinary tract infection, site not specified; E66.01 Morbid (severe) obesity due to excess calories; E11.9 Type 2 diabetes mellitus without complications; G89.29 Other chronic pain; M54.5 Low back pain; F41.1 Generalized anxiety disorder; I11.0 Hypertensive heart disease with heart failure; I50.32 Chronic diastolic (congestive) heart failure; R09.02 Hypoxemia; J44.9 Chronic obstructive pulmonary disease, unspecified; F32.9 Major depressive disorder, single episode, unspecified; N20.0 Calculus of kidney; Z53.29 Procedure and treatment not carried out because of patient's decision for other reasons; K57.90 Diverticulosis of intestine, part unspecified, without perforation or abscess without bleeding; Z87.442 Personal history of urinary calculi; Z87.01 Personal history of pneumonia (recurrent); Z98.51 Tubal ligation status; Z90.710 Acquired absence of both cervix and uterus; Z80.1 Family history of malignant neoplasm of trachea, bronchus and lung; Z80.8 Family history of malignant neoplasm of other organs or systems; Z68.42 Body mass index [BMI] 45.0-49.9, adult

== ENCOUNTER 2020-01-27 22:37 | Emergency (ER) | payer OTHER ==
[~2020-01-27] VITALS: Wt 150.6 kg
[2020-01-27 23:36] LABS: BILIRUBIN NEGATIVE (NEGATIVE); BLOOD 1+ (NEGATIVE); CLARITY SL CLOUDY (CLEAR); COLOR YELLOW (YELLOW); GLUCOSE NEGATIVE (NEGATIVE); KETONE NEGATIVE (NEGATIVE); LEUKO ESTERASE TRACE (NEGATIVE); NITRITE NEGATIVE (NEGATIVE); SPECIFIC GRAVITY 1.025 (1.005-1.030); UROBILINOGEN 0.2 E.U./dl (0.2-1.0)
[2020-01-27 23:41] LABS: BASO % 0.3 % (0.0-1.0); EOS # 0.3 10*3/uL (0.0-0.4); EOS % 3.4 % (1.0-4.0); HEMATOCRIT 37.9 % (37.0-47.0); HEMOGLOBIN 12.1 g/dl (12.0-16.0); LYMPH # 1.9 10*3/uL (1.3-4.4); LYMPH % 20.3 % (27.0-41.0); MEAN CELL VOLUME 81.9 fl (81.0-99.0); MEAN CORPUSCULAR HGB 26.1 pg (27.0-31.0); MEAN CORPUSCULAR HGB CONC 31.9 g/dl (33.0-37.0); MEAN PLATELET VOLUME 8.6 fl (9.6-12.3); MONO # 0.6 10*3/uL (0.1-1.0); MONO % 6.3 % (3.0-9.0); NEUT # 6.3 10*3/uL (2.3-7.9); NEUT % 68.7 % (47.0-73.0); PLATELET COUNT AUTOMATED 197 10*3/uL (130-400); RED BLOOD COUNT 4.63 10*6/uL (4.10-5.10); RED CELL DISTRI WIDTH 13.8 % (0-14.5); WHITE BLOOD COUNT 9.2 10*3/uL (4.8-10.8)
[2020-01-27 23:44] LABS: EPITHELIAL CELLS TNTC
[2020-01-27 23:52] LABS: BUN 14 mg/dl (7-24); CHLORIDE 104 mmol/L (98-107); CREATININE 0.73 mg/dL (0.55-1.02); POTASSIUM 3.5 mmol/L (3.5-5.1); SODIUM 137 mmol/L (136-145)
[2020-01-28] MEDS ORDERED: NORCO 5-325 TA1 EACH PO (01:17)
[2020-01-28] MEDS ORDERED: ZOFRAN4 MG PO (01:17)
== END 2020-01-28 01:30 | disposition home or self-care (01) ==
LOC: ED 22:37
PROVIDERS: Emergency Medicine Emergency Medical Services
DX: N20.1 Calculus of ureter (principal); N23 Unspecified renal colic; R31.9 Hematuria, unspecified; F41.9 Anxiety disorder, unspecified; J45.909 Unspecified asthma, uncomplicated; Z79.899 Other long term (current) drug therapy

== ENCOUNTER 2020-02-11 18:25 | Emergency (ER) | payer OTHER ==
[~2020-02-11] VITALS: Ht 167.6 cm; Wt 134.3 kg
[2020-02-11 19:23] LABS: BASO % 0.5 % (0.0-1.0); EOS # 0.3 10*3/uL (0.0-0.4); HEMATOCRIT 37.5 % (37.0-47.0); HEMOGLOBIN 11.6 g/dl (12.0-16.0); LYMPH # 0.9 10*3/uL (1.3-4.4); MEAN CELL VOLUME 83.3 fl (81.0-99.0); MEAN CORPUSCULAR HGB 25.8 pg (27.0-31.0); MEAN CORPUSCULAR HGB CONC 30.9 g/dl (33.0-37.0); MONO # 0.6 10*3/uL (0.1-1.0); MONO % 8.9 % (3.0-9.0); NEUT # 4.6 10*3/uL (2.3-7.9); NEUT % 69.6 % (47.0-73.0); PLATELET COUNT AUTOMATED 153 10*3/uL (130-400); RED CELL DISTRI WIDTH 14.1 % (0-14.5); WHITE BLOOD COUNT 6.7 10*3/uL (4.8-10.8)
[2020-02-11 19:33] LABS: CLARITY SL CLOUDY (CLEAR); COLOR YELLOW (YELLOW)
[2020-02-11 19:35] LABS: BILIRUBIN NEGATIVE (NEGATIVE); BLOOD TRACE-INTACT (NEGATIVE); GLUCOSE NEGATIVE (NEGATIVE); KETONE NEGATIVE (NEGATIVE); NITRITE NEGATIVE (NEGATIVE); UROBILINOGEN 0.2 E.U./dl (0.2-1.0)
[2020-02-11 19:40] LABS: BACTERIA 2+; EPITHELIAL CELLS 31-40; LEUKO ESTERASE 2+ (NEGATIVE); WBC 21-30 wbc/hpf (0-5)
[2020-02-11 19:40] LABS: ALBUMIN 2.9 gm/dl (3.1-4.5); ALKALINE PHOSPHATASE 85 U/L (45-117); BUN 12 mg/dl (7-24); CHLORIDE 104 mmol/L (98-107); POTASSIUM 3.6 mmol/L (3.5-5.1); SGOT/AST 59 IU/L (3-35); SGPT/ALT 54 U/L (12-78); SODIUM 139 mmol/L (136-145); TOTAL PROTEIN 6.4 gm/dL (6.4-8.2)
[2020-02-11] MEDS ORDERED: DOXYCYCLINE HY100 M3 PO (20:41)
[2020-02-11] MEDS ORDERED: TAMIFLU 75MG CA75 MG PO (20:41)
[2020-02-11] MEDS ORDERED: ZITHROMAX250 MG PO (20:41)
== END 2020-02-11 20:56 | disposition home or self-care (01) ==
LOC: ED 18:25
PROVIDERS: Emergency Medicine
DX: J18.9 Pneumonia, unspecified organism (principal); J45.901 Unspecified asthma with (acute) exacerbation; R00.0 Tachycardia, unspecified

== ENCOUNTER → 2020-03-13 | Outpatient (CLI) | payer OTHER ==
[~2020-03-13] MED LIST changes: +DOXYCYCLINE HY100 M3 PO; +TAMIFLU 75MG CA75 MG PO
[2020-03-13 16:22] LABS: HEMATOCRIT 41.9 % (37.0-47.0); MEAN CELL VOLUME 82.3 fl (81.0-99.0); MEAN CORPUSCULAR HGB 25.7 pg (27.0-31.0); MEAN CORPUSCULAR HGB CONC 31.3 g/dl (33.0-37.0); MEAN PLATELET VOLUME 8.6 fl (9.6-12.3); RED BLOOD COUNT 5.09 10*6/uL (4.10-5.10); RED CELL DISTRI WIDTH 14.6 % (0-14.5); WHITE BLOOD COUNT 8.5 10*3/uL (4.8-10.8)
[2020-03-13 16:36] LABS: ALBUMIN 3.1 gm/dl (3.1-4.5); ALKALINE PHOSPHATASE 84 U/L (45-117); BUN 11 mg/dl (7-24); CHLORIDE 103 mmol/L (98-107); CREATININE 0.71 mg/dL (0.55-1.02); POTASSIUM 3.9 mmol/L (3.5-5.1); SGOT/AST 41 IU/L (3-35); SGPT/ALT 62 U/L (12-78); SODIUM 138 mmol/L (136-145); TOTAL PROTEIN 6.9 gm/dL (6.4-8.2)
== END | disposition home or self-care (01) ==
LOC: LAB 15:54
PROVIDERS: Family Medicine
DX: J11.1 Influenza due to unidentified influenza virus with other respiratory manifestations (principal); J18.9 Pneumonia, unspecified organism; R06.02 Shortness of breath; R05 Cough

== ENCOUNTER 2020-06-17 23:44 | Emergency (ER) | payer OTHER ==
[~2020-06-17] VITALS: Ht 167.6 cm; Wt 143.3 kg
[2020-06-18 00:27] LABS: BASO % 0.4 % (0.0-1.0); EOS # 0.3 10*3/uL (0.0-0.4); EOS % 3.2 % (1.0-4.0); HEMATOCRIT 40.5 % (37.0-47.0); LYMPH # 1.7 10*3/uL (1.3-4.4); LYMPH % 15.8 % (27.0-41.0); MEAN CORPUSCULAR HGB 24.9 pg (27.0-31.0); MEAN CORPUSCULAR HGB CONC 31.1 g/dl (33.0-37.0); MEAN PLATELET VOLUME 9.2 fl (9.6-12.3); MONO # 0.6 10*3/uL (0.1-1.0); MONO % 5.6 % (3.0-9.0); NEUT % 73.6 % (47.0-73.0); PLATELET COUNT AUTOMATED 201 10*3/uL (130-400); RED BLOOD COUNT 5.06 10*6/uL (4.10-5.10); RED CELL DISTRI WIDTH 14.5 % (0-14.5); WHITE BLOOD COUNT 10.8 10*3/uL (4.8-10.8)
[2020-06-18 00:44] LABS: ALKALINE PHOSPHATASE 100 U/L (45-117); BUN 17 mg/dl (7-24); CHLORIDE 99 mmol/L (98-107); CREATININE 0.73 mg/dL (0.55-1.02); LIPASE 80 U/L (73-393); POTASSIUM 3.6 mmol/L (3.5-5.1); SGOT/AST 45 IU/L (3-35); SGPT/ALT 49 U/L (12-78); SODIUM 134 mmol/L (136-145); TOTAL PROTEIN 7.1 gm/dL (6.4-8.2)
[2020-06-18 00:47] LABS: BILIRUBIN NEGATIVE (NEGATIVE); BLOOD NEGATIVE (NEGATIVE); CLARITY CLEAR (CLEAR); COLOR YELLOW (YELLOW); GLUCOSE TRACE (NEGATIVE); KETONE NEGATIVE (NEGATIVE); LEUKO ESTERASE NEGATIVE (NEGATIVE); NITRITE POSITIVE (NEGATIVE); PH 7.5 (5.0-9.0); SPECIFIC GRAVITY 1.015 (1.005-1.030); UROBILINOGEN 0.2 E.U./dl (0.2-1.0)
[2020-06-18 00:54] LABS: BACTERIA 2+; CALCIUM OXALATE CRYSTALS TR
[2020-06-18] MEDS ORDERED: TYLENOL325 M1 PO (04:59)
[2020-06-18] MEDS ORDERED: DICYCLOMINE HCL10 MG PO (05:01)
== END 2020-06-18 05:25 | disposition home or self-care (01) ==
LOC: ED 23:44
PROVIDERS: Emergency Medicine
DX: K57.90 Diverticulosis of intestine, part unspecified, without perforation or abscess without bleeding (principal); K76.0 Fatty (change of) liver, not elsewhere classified; F41.9 Anxiety disorder, unspecified; Z79.899 Other long term (current) drug therapy

== ENCOUNTER 2020-07-20 19:19 | Emergency (ER) | payer OTHER ==
[~2020-07-20] VITALS: Ht 167.6 cm; Wt 141.5 kg
[~2020-07-20 19:19] MED LIST changes: +DICYCLOMINE HCL10 MG PO; +TYLENOL325 M1 PO
[2020-07-20 20:31] LABS: BILIRUBIN NEGATIVE; BLOOD NEGATIVE (NEGATIVE); CLARITY CLEAR (CLEAR); COLOR YELLOW (YELLOW); GLUCOSE 1+; KETONE NEGATIVE; SPECIFIC GRAVITY 1.015 (1.001-1.030)
[2020-07-20 20:32] LABS: LEUKO ESTERASE NEGATIVE (NEGATIVE); NITRITE NEGATIVE (NEGATIVE); PH 6.5 (4.5-8.0); UROBILINOGEN 0.2 E.U./dl (0.0-1.0)
[2020-07-20 21:35] LABS: BASO % 0.4 % (0.0-1.0); EOS # 0.3 10*3/uL (0.0-0.4); EOS % 3.5 % (1.0-4.0); HEMATOCRIT 39.6 % (37.0-47.0); LYMPH # 1.6 10*3/uL (1.3-4.4); MEAN CELL VOLUME 80.2 fl (81.0-99.0); MEAN CORPUSCULAR HGB 24.3 pg (27.0-31.0); MEAN CORPUSCULAR HGB CONC 30.3 g/dl (33.0-37.0); MEAN PLATELET VOLUME 9.1 fl (9.6-12.3); MONO # 0.6 10*3/uL (0.1-1.0); NEUT # 6.5 10*3/uL (2.3-7.9); NEUT % 70.8 % (47.0-73.0); PLATELET COUNT AUTOMATED 173 10*3/uL (130-400); RED BLOOD COUNT 4.94 10*6/uL (4.10-5.10); RED CELL DISTRI WIDTH 14.3 % (0-14.5); WHITE BLOOD COUNT 9.1 10*3/uL (4.8-10.8)
[2020-07-20 21:50] LABS: BUN 12 mg/dl (7-24); CHLORIDE 102 mmol/L (98-107); POTASSIUM 3.7 mmol/L (3.5-5.1); SODIUM 136 mmol/L (136-145)
[2020-07-20] MEDS ORDERED: NORCO 5-325 TA1 EACH PO (23:11)
[2020-07-20] MEDS ORDERED: ZOFRAN4 MG PO (23:11)
== END 2020-07-20 23:19 | disposition home or self-care (01) ==
LOC: ED 19:19
PROVIDERS: Emergency Medicine Emergency Medical Services
DX: N23 Unspecified renal colic (principal); G47.30 Sleep apnea, unspecified; Z79.899 Other long term (current) drug therapy

== ENCOUNTER 2020-08-21 00:47 | Emergency (ER) | payer OTHER ==
[~2020-08-21] VITALS: Ht 167.6 cm; Wt 141.5 kg
[2020-08-21 01:22] LABS: BASO % 0.4 % (0.0-1.0); EOS # 0.3 10*3/uL (0.0-0.4); EOS % 2.3 % (1.0-4.0); HEMATOCRIT 42.4 % (37.0-47.0); LYMPH # 1.9 10*3/uL (1.3-4.4); LYMPH % 16.5 % (27.0-41.0); MEAN CELL VOLUME 80.9 fl (81.0-99.0); MEAN CORPUSCULAR HGB 24.8 pg (27.0-31.0); MEAN CORPUSCULAR HGB CONC 30.7 g/dl (33.0-37.0); MEAN PLATELET VOLUME 9.2 fl (9.6-12.3); MONO # 0.7 10*3/uL (0.1-1.0); MONO % 6.4 % (3.0-9.0); NEUT # 8.3 10*3/uL (2.3-7.9); NEUT % 73.4 % (47.0-73.0); PLATELET COUNT AUTOMATED 187 10*3/uL (130-400); RED BLOOD COUNT 5.24 10*6/uL (4.10-5.10); RED CELL DISTRI WIDTH 14.8 % (0-14.5); WHITE BLOOD COUNT 11.3 10*3/uL (4.8-10.8)
[2020-08-21 01:38] LABS: ALBUMIN 3.1 gm/dl (3.1-4.5); ALKALINE PHOSPHATASE 95 U/L (45-117); BUN 21 mg/dl (7-24); CHLORIDE 99 mmol/L (98-107); CREATININE 1.08 mg/dL (0.55-1.02); POTASSIUM 4.2 mmol/L (3.5-5.1); SGOT/AST 31 IU/L (3-35); SGPT/ALT 49 U/L (12-78); SODIUM 135 mmol/L (136-145); TOTAL PROTEIN 6.9 gm/dL (6.4-8.2)
[2020-08-21 01:46] LABS: TROPONIN I < 0.015 ng/ml (<0.045)
[2020-08-21 02:37] LABS: BILIRUBIN Negative; CLARITY Cloudy (Clear); COLOR Yellow (Yellow); GLUCOSE 3+; KETONE Trace; SPECIFIC GRAVITY > 1.030 (1.001-1.030)
[2020-08-21 02:38] LABS: BLOOD Negative (Negative); LEUKO ESTERASE Negative (Negative); NITRITE Negative (Negative); PH 5.5 (4.5-8.0); UROBILINOGEN 0.2 E.U./dl (0.0-1.0)
[2020-08-21] MEDS ORDERED: FLOVENT HFA10.6 GM INH (02:51)
[2020-08-21] MEDS ORDERED: PREDNISONE20 M1 PO (02:51)
[2020-08-21 02:53] LABS: EPITHELIAL CELLS 21-30
== END 2020-08-21 04:12 | disposition home or self-care (01) ==
LOC: ED 00:47
PROVIDERS: Emergency Medicine
DX: M54.5 Low back pain (principal); J45.901 Unspecified asthma with (acute) exacerbation; M53.3 Sacrococcygeal disorders, not elsewhere classified

== ENCOUNTER 2020-08-27 15:41 | Inpatient (IN) | payer OTHER ==
[~2020-08-27] VITALS: Ht 167.6 cm; Wt 138.8 kg
[~2020-08-27 15:41] MED LIST changes: +FLOVENT HFA10.6 GM INH
[2020-08-27 15:51] VITALS: BP 148/72
[2020-08-27 16:23] LABS: HEMATOCRIT 42.8 % (37.0-47.0); MEAN CELL VOLUME 80.3 fl (81.0-99.0); MEAN CORPUSCULAR HGB 24.8 pg (27.0-31.0); MEAN CORPUSCULAR HGB CONC 30.8 g/dl (33.0-37.0); MEAN PLATELET VOLUME 9.4 fl (9.6-12.3); PLATELET COUNT AUTOMATED 193 10*3/uL (130-400); RED BLOOD COUNT 5.33 10*6/uL (4.10-5.10); RED CELL DISTRI WIDTH 14.9 % (0-14.5); WHITE BLOOD COUNT 10.9 10*3/uL (4.8-10.8)
[2020-08-27 16:37] LABS: ACT PARTIAL THROMBO TIME 24.5 SECONDS (20.0-32.1)
[2020-08-27 16:40] LABS: ALBUMIN 3.3 gm/dl (3.1-4.5); ALKALINE PHOSPHATASE 94 U/L (45-117); BUN 21 mg/dl (7-24); CHLORIDE 99 mmol/L (98-107); CREATININE 1.05 mg/dL (0.55-1.02); POTASSIUM 4.2 mmol/L (3.5-5.1); SGOT/AST 33 IU/L (3-35); SGPT/ALT 66 U/L (12-78); SODIUM 133 mmol/L (136-145)
[2020-08-27 16:41] VITALS: BP 138/68
[2020-08-27 16:41] LABS: PLATELET SUFFICIENCY NORMAL (NORMAL); TOTAL CELLS COUNTED 100 #CELLS
[2020-08-27 16:42] LABS: POLYCHROMASIA SLIGHT
[2020-08-27 16:44] LABS: TROPONIN I < 0.015 ng/ml (<0.045)
[2020-08-27 20:00] VITALS: BP 147/94
[2020-08-27 20:15] VITALS: BP 147/94
[2020-08-27] MEDS ORDERED: QUETIAPINE FUMA25 MG PO (21:11)
[2020-08-27] MEDS ORDERED: CLARITIN10 MG PO (21:12)
[2020-08-27] MEDS ORDERED: IBU800 M1 PO (21:13)
[2020-08-28] VITALS: BP 142/82
[2020-08-28 06:55] LABS: BASO % 0.3 % (0.0-1.0); EOS # 0.2 10*3/uL (0.0-0.4); EOS % 1.9 % (1.0-4.0); HEMATOCRIT 41.2 % (37.0-47.0); LYMPH # 2.2 10*3/uL (1.3-4.4); LYMPH % 20.4 % (27.0-41.0); MEAN CELL VOLUME 81.4 fl (81.0-99.0); MEAN CORPUSCULAR HGB 24.7 pg (27.0-31.0); MEAN CORPUSCULAR HGB CONC 30.3 g/dl (33.0-37.0); MEAN PLATELET VOLUME 9.1 fl (9.6-12.3); MONO # 0.6 10*3/uL (0.1-1.0); MONO % 5.5 % (3.0-9.0); NEUT # 7.4 10*3/uL (2.3-7.9); NEUT % 70.7 % (47.0-73.0); PLATELET COUNT AUTOMATED 181 10*3/uL (130-400); RED BLOOD COUNT 5.06 10*6/uL (4.10-5.10); RED CELL DISTRI WIDTH 15.2 % (0-14.5); WHITE BLOOD COUNT 10.5 10*3/uL (4.8-10.8)
[2020-08-28 06:59] LABS: BUN 17 mg/dl (7-24); CHLORIDE 109 mmol/L (98-107); CREATININE 0.71 mg/dL (0.55-1.02); POTASSIUM 3.5 mmol/L (3.5-5.1); SODIUM 135 mmol/L (136-145)
[2020-08-28 08:00] VITALS: BP 136/90
[2020-08-28 12:00] VITALS: BP 119/72
[2020-08-28 16:00] VITALS: BP 149/89
[2020-08-28 20:00] VITALS: BP 126/88
[2020-08-29] VITALS: BP 134/72
[2020-08-29 08:00] VITALS: BP 124/76
[2020-08-29 12:00] VITALS: BP 143/94
[2020-08-29 16:00] VITALS: BP 145/81
[2020-08-29 20:00] VITALS: BP 143/81
[2020-08-30] VITALS: BP 122/74
[2020-08-30] MEDS ORDERED: Lantus SC (10:49)
[2020-08-30] MEDS ORDERED: GLIMEPIRIDE4 M1 PO (10:49)
== END 2020-08-30 17:00 | disposition home or self-care (01) | DRG 420 ==
LOC: ED 15:41 → 5E 17:32 → EDHOLD 17:32 → 5E 19:07
PROVIDERS: Emergency Medicine; ADMIT Internal Medicine; ATTEND Internal Medicine
PROC: 4A02XM4 Measurement of Cardiac Total Activity, External Approach (ICD-10-PCS; principal; 2020-08-30)
PROC: 3E073KZ Introduction of Other Diagnostic Substance into Coronary Artery, Percutaneous Approach (ICD-10-PCS; 2020-08-30)
DX: E11.65 Type 2 diabetes mellitus with hyperglycemia (principal); R07.9 Chest pain, unspecified; E66.01 Morbid (severe) obesity due to excess calories; F33.1 Major depressive disorder, recurrent, moderate; G93.89 Other specified disorders of brain; F41.1 Generalized anxiety disorder; J30.1 Allergic rhinitis due to pollen; Z68.43 Body mass index [BMI] 50.0-59.9, adult; Z98.51 Tubal ligation status; Z80.1 Family history of malignant neoplasm of trachea, bronchus and lung; Z80.8 Family history of malignant neoplasm of other organs or systems; Z90.710 Acquired absence of both cervix and uterus; Z87.442 Personal history of urinary calculi; Z87.440 Personal history of urinary (tract) infections

== ENCOUNTER 2020-09-09 19:54 | Emergency (ER) | payer OTHER ==
[~2020-09-09] VITALS: Ht 167.6 cm; Wt 138.8 kg
[~2020-09-09 19:54] MED LIST changes: +CLARITIN10 MG PO; +IBU800 M1 PO; +Lantus SC; +QUETIAPINE FUMA25 MG PO
[2020-09-09 22:12] LABS: BASO % 0.3 % (0.0-1.0); EOS # 0.2 10*3/uL (0.0-0.4); EOS % 2.5 % (1.0-4.0); HEMATOCRIT 39.7 % (37.0-47.0); LYMPH # 1.4 10*3/uL (1.3-4.4); LYMPH % 15.3 % (27.0-41.0); MEAN CELL VOLUME 82.7 fl (81.0-99.0); MEAN CORPUSCULAR HGB 25.6 pg (27.0-31.0); MEAN PLATELET VOLUME 9.5 fl (9.6-12.3); MONO # 0.6 10*3/uL (0.1-1.0); MONO % 6.5 % (3.0-9.0); NEUT # 6.6 10*3/uL (2.3-7.9); NEUT % 74.6 % (47.0-73.0); PLATELET COUNT AUTOMATED 172 10*3/uL (130-400); RED CELL DISTRI WIDTH 14.9 % (0-14.5); WHITE BLOOD COUNT 8.8 10*3/uL (4.8-10.8)
[2020-09-09 22:25] LABS: ACT PARTIAL THROMBO TIME 25.1 SECONDS (20.0-32.1); INTERNATIONAL NORM RATIO 0.9 (2.0-3.5)
[2020-09-09 22:30] LABS: ALBUMIN 2.8 gm/dl (3.1-4.5); ALKALINE PHOSPHATASE 96 U/L (45-117); BUN 16 mg/dl (7-24); CHLORIDE 104 mmol/L (98-107); CREATININE 0.71 mg/dL (0.55-1.02); LIPASE 78 U/L (73-393); POTASSIUM 3.6 mmol/L (3.5-5.1); SGOT/AST 60 IU/L (3-35); SGPT/ALT 61 U/L (12-78); SODIUM 139 mmol/L (136-145); TOTAL PROTEIN 6.3 gm/dL (6.4-8.2)
[2020-09-09 22:34] LABS: TROPONIN I < 0.015 ng/ml (<0.045)
[2020-09-09 22:52] LABS: BILIRUBIN Negative (Negative); BLOOD Negative (Negative); CLARITY Cloudy (Clear); COLOR Yellow (Yellow); GLUCOSE Negative (Negative); KETONE Negative (Negative); LEUKO ESTERASE Negative (Negative); NITRITE Negative (Negative); PH 6.5 (4.5-8.0)
[2020-09-09 23:02] LABS: EPITHELIAL CELLS 16-20; WBC 0-2 wbc/hpf (0-5)
[2020-09-09 23:03] LABS: BACTERIA TRACE
[2020-09-09] MEDS ORDERED: DOXYCYCLINE100 M3 PO (23:08)
== END 2020-09-10 01:51 | disposition home or self-care (01) ==
LOC: ED 19:54
PROVIDERS: Physician Assistant
DX: L30.9 Dermatitis, unspecified (principal); R07.89 Other chest pain; Z79.899 Other long term (current) drug therapy

== ENCOUNTER 2020-09-22 18:43 | Emergency (ER) | payer OTHER | END 2020-09-22 22:00 | disposition home or self-care (01) | LOC: ED 18:43 | DX: G43.909 Migraine, unspecified, not intractable, without status migrainosus (principal); Z79.899 Other long term (current) drug therapy ==

== ENCOUNTER 2020-09-23 16:46 | Emergency (ER) | payer OTHER ==
[~2020-09-23] VITALS: Ht 167.6 cm; Wt 138.8 kg
[2020-09-23 17:42] LABS: BASO % 0.4 % (0.0-1.0); EOS # 0.4 10*3/uL (0.0-0.4); EOS % 3.4 % (1.0-4.0); HEMATOCRIT 39.2 % (37.0-47.0); LYMPH # 1.6 10*3/uL (1.3-4.4); MEAN CELL VOLUME 81.7 fl (81.0-99.0); MEAN CORPUSCULAR HGB 24.8 pg (27.0-31.0); MEAN CORPUSCULAR HGB CONC 30.4 g/dl (33.0-37.0); MEAN PLATELET VOLUME 9.3 fl (9.6-12.3); MONO # 0.6 10*3/uL (0.1-1.0); NEUT # 7.9 10*3/uL (2.3-7.9); NEUT % 73.7 % (47.0-73.0); PLATELET COUNT AUTOMATED 189 10*3/uL (130-400); RED CELL DISTRI WIDTH 14.7 % (0-14.5); WHITE BLOOD COUNT 10.7 10*3/uL (4.8-10.8)
[2020-09-23 17:58] LABS: ALBUMIN 2.9 gm/dl (3.1-4.5); ALKALINE PHOSPHATASE 88 U/L (45-117); BUN 15 mg/dl (7-24); CHLORIDE 104 mmol/L (98-107); CREATININE 0.76 mg/dL (0.55-1.02); POTASSIUM 3.4 mmol/L (3.5-5.1); SGOT/AST 42 IU/L (3-35); SGPT/ALT 48 U/L (12-78); SODIUM 141 mmol/L (136-145); TOTAL PROTEIN 6.4 gm/dL (6.4-8.2)
== END 2020-09-23 19:36 | disposition home or self-care (01) ==
LOC: ED 16:46
PROVIDERS: Nurse Practitioner Family
DX: G43.909 Migraine, unspecified, not intractable, without status migrainosus (principal); Z79.899 Other long term (current) drug therapy

== ENCOUNTER 2020-09-28 20:12 | Emergency (ER) | payer OTHER ==
[~2020-09-28] VITALS: Ht 167.6 cm; Wt 140.2 kg
[2020-09-28 21:34] LABS: BASO # 0.1 10*3/uL (0.0-0.1); BASO % 0.4 % (0.0-1.0); EOS # 0.3 10*3/uL (0.0-0.4); EOS % 2.2 % (1.0-4.0); HEMATOCRIT 45.4 % (37.0-47.0); LYMPH # 2.1 10*3/uL (1.3-4.4); LYMPH % 15.1 % (27.0-41.0); MEAN CELL VOLUME 81.9 fl (81.0-99.0); MEAN CORPUSCULAR HGB 24.9 pg (27.0-31.0); MEAN CORPUSCULAR HGB CONC 30.4 g/dl (33.0-37.0); MEAN PLATELET VOLUME 9.1 fl (9.6-12.3); MONO # 0.8 10*3/uL (0.1-1.0); MONO % 5.8 % (3.0-9.0); NEUT # 10.6 10*3/uL (2.3-7.9); NEUT % 75.2 % (47.0-73.0); PLATELET COUNT AUTOMATED 245 10*3/uL (130-400); RED BLOOD COUNT 5.54 10*6/uL (4.10-5.10); RED CELL DISTRI WIDTH 14.7 % (0-14.5); WHITE BLOOD COUNT 14.1 10*3/uL (4.8-10.8)
[2020-09-28 21:50] LABS: ALBUMIN 3.5 gm/dl (3.1-4.5); ALKALINE PHOSPHATASE 105 U/L (45-117); BUN 16 mg/dl (7-24); CHLORIDE 100 mmol/L (98-107); CREATININE 0.92 mg/dL (0.55-1.02); LIPASE 67 U/L (73-393); POTASSIUM 3.4 mmol/L (3.5-5.1); SGOT/AST 74 IU/L (3-35); SGPT/ALT 70 U/L (12-78); SODIUM 138 mmol/L (136-145); TOTAL PROTEIN 7.7 gm/dL (6.4-8.2)
[2020-09-28 22:19] LABS: BILIRUBIN Negative (Negative); BLOOD Negative (Negative); CLARITY Cloudy (Clear); COLOR Yellow (Yellow); GLUCOSE Negative (Negative); KETONE Negative (Negative); LEUKO ESTERASE Negative (Negative); NITRITE Negative (Negative); PH 5.5 (4.5-8.0); UROBILINOGEN 0.2 E.U./dl (0.0-1.0)
[2020-09-28 22:33] LABS: BACTERIA 1+; EPITHELIAL CELLS 31-40; RBC 0-2 rbc/hpf (0-2)
== END 2020-09-29 04:30 | disposition short-term general hospital (02) ==
LOC: ED 20:12
PROVIDERS: Emergency Medicine
DX: I72.8 Aneurysm of other specified arteries (principal); R16.1 Splenomegaly, not elsewhere classified; Z79.899 Other long term (current) drug therapy; Z79.2 Long term (current) use of antibiotics

== ENCOUNTER 2020-10-02 17:36 | Emergency (ER) | payer OTHER ==
[~2020-10-02] VITALS: Ht 167.6 cm; Wt 140.2 kg
[2020-10-02 22:14] LABS: BASO % 0.3 % (0.0-1.0); EOS # 0.3 10*3/uL (0.0-0.4); EOS % 3.3 % (1.0-4.0); HEMATOCRIT 37.9 % (37.0-47.0); LYMPH # 1.5 10*3/uL (1.3-4.4); LYMPH % 16.7 % (27.0-41.0); MEAN CORPUSCULAR HGB 25.8 pg (27.0-31.0); MEAN CORPUSCULAR HGB CONC 31.4 g/dl (33.0-37.0); MEAN PLATELET VOLUME 8.9 fl (9.6-12.3); MONO # 0.5 10*3/uL (0.1-1.0); MONO % 5.1 % (3.0-9.0); NEUT # 6.7 10*3/uL (2.3-7.9); NEUT % 73.5 % (47.0-73.0); PLATELET COUNT AUTOMATED 179 10*3/uL (130-400); RED BLOOD COUNT 4.62 10*6/uL (4.10-5.10); RED CELL DISTRI WIDTH 14.4 % (0-14.5); WHITE BLOOD COUNT 9.1 10*3/uL (4.8-10.8)
[2020-10-02 22:37] LABS: ALKALINE PHOSPHATASE 86 U/L (45-117); BUN 9 mg/dl (7-24); CHLORIDE 99 mmol/L (98-107); CREATININE 0.75 mg/dL (0.55-1.02); POTASSIUM 3.2 mmol/L (3.5-5.1); SGOT/AST 31 IU/L (3-35); SGPT/ALT 42 U/L (12-78); SODIUM 138 mmol/L (136-145); TOTAL PROTEIN 6.2 gm/dL (6.4-8.2)
[2020-10-03 01:41] LABS: BILIRUBIN Negative (Negative); BLOOD Negative (Negative); CLARITY Clear (Clear); COLOR Yellow (Yellow); GLUCOSE Negative (Negative); KETONE Negative (Negative); LEUKO ESTERASE Negative (Negative); NITRITE Negative (Negative); PH 5.5 (4.5-8.0); UROBILINOGEN 0.2 E.U./dl (0.0-1.0)
[2020-10-03 01:55] LABS: BACTERIA 1+; EPITHELIAL CELLS TNTC
[2020-10-03] MEDS ORDERED: KEFLEX500 M1 PO (02:07)
== END 2020-10-03 02:25 | disposition home or self-care (01) ==
LOC: ED 17:36
PROVIDERS: Nurse Practitioner
DX: R16.1 Splenomegaly, not elsewhere classified (principal); Z79.899 Other long term (current) drug therapy

== ENCOUNTER → 2020-10-30 | Outpatient (CLI) | payer OTHER ==
[~2020-10-30] MED LIST changes: +KEFLEX500 M1 PO
== END | disposition home or self-care (01) ==
LOC: COVID19 07:57
PROVIDERS: ATTEND Nurse Practitioner Family
DX: U07.1 COVID-19 (principal)

== ENCOUNTER 2020-11-03 16:17 | Emergency (ER) | payer OTHER ==
[~2020-11-03] VITALS: Ht 167.6 cm; Wt 138.8 kg
[2020-11-03 17:19] LABS: BASO % 0.4 % (0.0-1.0); EOS # 0.3 10*3/uL (0.0-0.4); EOS % 2.7 % (1.0-4.0); HEMATOCRIT 41.4 % (37.0-47.0); LYMPH # 1.4 10*3/uL (1.3-4.4); LYMPH % 15.2 % (27.0-41.0); MEAN CELL VOLUME 81.5 fl (81.0-99.0); MEAN CORPUSCULAR HGB 25.2 pg (27.0-31.0); MEAN CORPUSCULAR HGB CONC 30.9 g/dl (33.0-37.0); MEAN PLATELET VOLUME 9.1 fl (9.6-12.3); MONO # 0.5 10*3/uL (0.1-1.0); MONO % 5.1 % (3.0-9.0); NEUT # 7.1 10*3/uL (2.3-7.9); NEUT % 76.1 % (47.0-73.0); PLATELET COUNT AUTOMATED 193 10*3/uL (130-400); RED BLOOD COUNT 5.08 10*6/uL (4.10-5.10); WHITE BLOOD COUNT 9.3 10*3/uL (4.8-10.8)
[2020-11-03 17:35] LABS: ALBUMIN 3.2 gm/dl (3.1-4.5); BUN 20 mg/dl (7-24); CHLORIDE 104 mmol/L (98-107); CREATININE 0.97 mg/dL (0.55-1.02); POTASSIUM 3.6 mmol/L (3.5-5.1); SGOT/AST 46 IU/L (3-35); SGPT/ALT 43 U/L (12-78); SODIUM 140 mmol/L (136-145)
[2020-11-03 17:36] LABS: ALKALINE PHOSPHATASE 94 U/L (45-117)
== END 2020-11-03 18:18 | disposition home or self-care (01) ==
LOC: ED 16:17
PROVIDERS: Physician Assistant
DX: U07.1 COVID-19 (principal); R19.7 Diarrhea, unspecified; R10.12 Left upper quadrant pain; J45.909 Unspecified asthma, uncomplicated; E11.9 Type 2 diabetes mellitus without complications; G43.909 Migraine, unspecified, not intractable, without status migrainosus; F41.9 Anxiety disorder, unspecified; Z79.2 Long term (current) use of antibiotics; Z79.899 Other long term (current) drug therapy; Z79.4 Long term (current) use of insulin; Z90.710 Acquired absence of both cervix and uterus; Z98.51 Tubal ligation status; Z87.442 Personal history of urinary calculi

== ENCOUNTER 2020-11-15 05:12 | Emergency (ER) | payer OTHER ==
[~2020-11-15] VITALS: Ht 167.6 cm; Wt 138.8 kg
[2020-11-15 06:06] LABS: BASO # 0.1 10*3/uL (0.0-0.1); BASO % 0.5 % (0.0-1.0); EOS # 0.3 10*3/uL (0.0-0.4); EOS % 2.7 % (1.0-4.0); HEMATOCRIT 39.9 % (37.0-47.0); LYMPH # 1.9 10*3/uL (1.3-4.4); LYMPH % 17.1 % (27.0-41.0); MEAN CELL VOLUME 81.4 fl (81.0-99.0); MEAN CORPUSCULAR HGB 25.5 pg (27.0-31.0); MEAN CORPUSCULAR HGB CONC 31.3 g/dl (33.0-37.0); MEAN PLATELET VOLUME 9.1 fl (9.6-12.3); MONO # 0.7 10*3/uL (0.1-1.0); NEUT # 8.1 10*3/uL (2.3-7.9); NEUT % 72.8 % (47.0-73.0); PLATELET COUNT AUTOMATED 230 10*3/uL (130-400); WHITE BLOOD COUNT 11.1 10*3/uL (4.8-10.8)
[2020-11-15 06:13] LABS: ALKALINE PHOSPHATASE 94 U/L (45-117); BUN 14 mg/dl (7-24); CHLORIDE 102 mmol/L (98-107); CREATININE 0.94 mg/dL (0.55-1.02); POTASSIUM 3.3 mmol/L (3.5-5.1); SGOT/AST 38 IU/L (3-35); SGPT/ALT 44 U/L (12-78); SODIUM 137 mmol/L (136-145); TOTAL PROTEIN 6.7 gm/dL (6.4-8.2)
[2020-11-15 06:16] LABS: TROPONIN I < 0.015 ng/ml (<0.045)
== END 2020-11-15 07:21 | disposition home or self-care (01) ==
LOC: ED 05:12
PROVIDERS: Internal Medicine
DX: U07.1 COVID-19 (principal); R73.9 Hyperglycemia, unspecified; E87.6 Hypokalemia; E88.09 Other disorders of plasma-protein metabolism, not elsewhere classified; Z79.899 Other long term (current) drug therapy

== ENCOUNTER 2020-12-31 20:23 | Emergency (ER) | payer OTHER ==
[~2020-12-31] VITALS: Ht 167.6 cm; Wt 138.3 kg
[2020-12-31 21:13] LABS: BILIRUBIN Negative (Negative); BLOOD Negative (Negative); CLARITY Clear (Clear); COLOR Yellow (Yellow); GLUCOSE Negative (Negative); KETONE Negative (Negative); LEUKO ESTERASE Negative (Negative); NITRITE Negative (Negative); PH 5.5 (4.5-8.0); SPECIFIC GRAVITY >= 1.030 (1.001-1.030); UROBILINOGEN 0.2 E.U./dl (0.0-1.0)
[2020-12-31 21:21] LABS: BACTERIA 1+; MUCOUS TRACE; RBC 0-2 rbc/hpf (0-2)
[2020-12-31 21:38] LABS: BASO % 0.4 % (0.0-1.0); EOS # 0.3 10*3/uL (0.0-0.4); EOS % 2.7 % (1.0-4.0); HEMATOCRIT 39.9 % (37.0-47.0); LYMPH # 1.7 10*3/uL (1.3-4.4); LYMPH % 16.9 % (27.0-41.0); MEAN CELL VOLUME 81.8 fl (81.0-99.0); MEAN CORPUSCULAR HGB 25.2 pg (27.0-31.0); MEAN CORPUSCULAR HGB CONC 30.8 g/dl (33.0-37.0); MONO # 0.6 10*3/uL (0.1-1.0); MONO % 5.8 % (3.0-9.0); NEUT # 7.4 10*3/uL (2.3-7.9); NEUT % 73.8 % (47.0-73.0); PLATELET COUNT AUTOMATED 183 10*3/uL (130-400); RED BLOOD COUNT 4.88 10*6/uL (4.10-5.10); RED CELL DISTRI WIDTH 14.1 % (0-14.5)
[2020-12-31 21:54] LABS: ALBUMIN 3.2 gm/dl (3.1-4.5); ALKALINE PHOSPHATASE 88 U/L (45-117); BUN 18 mg/dl (7-24); CHLORIDE 106 mmol/L (98-107); CREATININE 0.88 mg/dL (0.55-1.02); LIPASE 94 U/L (73-393); POTASSIUM 3.6 mmol/L (3.5-5.1); SGOT/AST 26 IU/L (3-35); SGPT/ALT 37 U/L (12-78); SODIUM 140 mmol/L (136-145); TOTAL PROTEIN 6.8 gm/dL (6.4-8.2)
== END 2021-01-01 00:20 | disposition home or self-care (01) ==
LOC: ED 20:23
PROVIDERS: Physician Assistant
DX: R10.9 Unspecified abdominal pain (principal); M54.5 Low back pain; R11.0 Nausea; F41.9 Anxiety disorder, unspecified; Z79.2 Long term (current) use of antibiotics; Z79.899 Other long term (current) drug therapy; Z98.51 Tubal ligation status; Z90.711 Acquired absence of uterus with remaining cervical stump; Z87.442 Personal history of urinary calculi

== ENCOUNTER 2021-04-08 21:41 | Emergency (ER) | payer OTHER ==
[2021-04-08 22:27] LABS: BILIRUBIN Negative (Negative); BLOOD Negative (Negative); CLARITY Clear (Clear); COLOR Yellow (Yellow); GLUCOSE Negative (Negative); KETONE Negative (Negative); LEUKO ESTERASE Negative (Negative); NITRITE Negative (Negative); SPECIFIC GRAVITY 1.015 (1.001-1.030); UROBILINOGEN 0.2 E.U./dl (0.0-1.0)
[2021-04-08 22:54] LABS: EPITHELIAL CELLS 31-40; WBC 0-2 wbc/hpf (0-5)
[2021-04-08 23:02] LABS: HEMATOCRIT 43.2 % (37.0-47.0); MEAN CELL VOLUME 80.6 fl (81.0-99.0); MEAN CORPUSCULAR HGB 23.7 pg (27.0-31.0); MEAN CORPUSCULAR HGB CONC 29.4 g/dl (33.0-37.0); PLATELET COUNT AUTOMATED 211 10*3/uL (130-400); RED BLOOD COUNT 5.36 10*6/uL (4.10-5.10); RED CELL DISTRI WIDTH 15.3 % (0-14.5); WHITE BLOOD COUNT 16.6 10*3/uL (4.8-10.8)
[2021-04-08 23:13] LABS: ACT PARTIAL THROMBO TIME 23.8 SECONDS (20.0-32.1); INTERNATIONAL NORM RATIO 0.9 (2.0-3.5)
[2021-04-08 23:19] LABS: BASOPHILS 1 % (0-1); PLATELET SUFFICIENCY NORMAL (NORMAL); TOTAL CELLS COUNTED 100 #CELLS
[2021-04-08 23:22] LABS: ALBUMIN 3.1 gm/dl (3.1-4.5); ALKALINE PHOSPHATASE 102 U/L (45-117); BUN 23 mg/dl (7-24); CHLORIDE 101 mmol/L (98-107); CREATININE 0.99 mg/dL (0.55-1.02); LIPASE 80 U/L (73-393); SGOT/AST 37 IU/L (3-35); SGPT/ALT 48 U/L (12-78); SODIUM 136 mmol/L (136-145); TOTAL PROTEIN 7.1 gm/dL (6.4-8.2); TROPONIN I < 0.015 ng/ml (<0.045)
== END 2021-04-09 08:44 | disposition home or self-care (01) ==
LOC: ED 21:41
PROVIDERS: Physician Assistant
DX: J06.9 Acute upper respiratory infection, unspecified (principal); Z20.822 Contact with and (suspected) exposure to COVID-19; Z79.899 Other long term (current) drug therapy; Z98.890 Other specified postprocedural states; Z98.51 Tubal ligation status; Z90.711 Acquired absence of uterus with remaining cervical stump

== ENCOUNTER 2021-04-30 22:00 | Emergency (ER) | payer OTHER ==
[~2021-04-30] VITALS: Ht 167.6 cm; Wt 148.3 kg
[2021-04-30 22:39] LABS: BASO % 0.3 % (0.0-1.0); EOS # 0.2 10*3/uL (0.0-0.4); EOS % 2.2 % (1.0-4.0); HEMATOCRIT 39.6 % (37.0-47.0); LYMPH # 1.8 10*3/uL (1.3-4.4); LYMPH % 15.8 % (27.0-41.0); MEAN CORPUSCULAR HGB 24.2 pg (27.0-31.0); MEAN CORPUSCULAR HGB CONC 30.6 g/dl (33.0-37.0); MEAN PLATELET VOLUME 8.9 fl (9.6-12.3); MONO # 0.7 10*3/uL (0.1-1.0); MONO % 6.2 % (3.0-9.0); NEUT # 8.3 10*3/uL (2.3-7.9); NEUT % 74.7 % (47.0-73.0); PLATELET COUNT AUTOMATED 201 10*3/uL (130-400); RED BLOOD COUNT 5.01 10*6/uL (4.10-5.10); WHITE BLOOD COUNT 11.1 10*3/uL (4.8-10.8)
[2021-04-30 22:55] LABS: ALBUMIN 2.8 gm/dl (3.1-4.5); ALKALINE PHOSPHATASE 102 U/L (45-117); BUN 17 mg/dl (7-24); CHLORIDE 102 mmol/L (98-107); CREATININE 0.94 mg/dL (0.55-1.02); POTASSIUM 3.5 mmol/L (3.5-5.1); SGOT/AST 22 IU/L (3-35); SGPT/ALT 42 U/L (12-78); SODIUM 134 mmol/L (136-145); TOTAL PROTEIN 6.8 gm/dL (6.4-8.2)
== END 2021-05-01 02:31 | disposition home or self-care (01) ==
LOC: ED 22:00
PROVIDERS: Internal Medicine
DX: B34.9 Viral infection, unspecified (principal); Z20.822 Contact with and (suspected) exposure to COVID-19; K12.0 Recurrent oral aphthae; R79.82 Elevated C-reactive protein (CRP); E88.09 Other disorders of plasma-protein metabolism, not elsewhere classified; Z79.899 Other long term (current) drug therapy; Z98.890 Other specified postprocedural states; Z98.51 Tubal ligation status; Z90.711 Acquired absence of uterus with remaining cervical stump

== ENCOUNTER 2021-05-24 17:22 | Emergency (ER) | payer OTHER ==
[~2021-05-24] VITALS: Ht 167.6 cm; Wt 147.9 kg
[2021-05-24 18:11] LABS: BASO % 0.3 % (0.0-1.0); EOS # 0.3 10*3/uL (0.0-0.4); EOS % 2.6 % (1.0-4.0); HEMATOCRIT 41.1 % (37.0-47.0); LYMPH # 1.3 10*3/uL (1.3-4.4); LYMPH % 13.1 % (27.0-41.0); MEAN CORPUSCULAR HGB 23.7 pg (27.0-31.0); MEAN CORPUSCULAR HGB CONC 29.7 g/dl (33.0-37.0); MEAN PLATELET VOLUME 8.9 fl (9.6-12.3); MONO # 0.5 10*3/uL (0.1-1.0); MONO % 5.3 % (3.0-9.0); NEUT # 7.5 10*3/uL (2.3-7.9); NEUT % 78.1 % (47.0-73.0); PLATELET COUNT AUTOMATED 185 10*3/uL (130-400); RED BLOOD COUNT 5.14 10*6/uL (4.10-5.10); RED CELL DISTRI WIDTH 16.1 % (0-14.5); WHITE BLOOD COUNT 9.6 10*3/uL (4.8-10.8)
[2021-05-24 18:30] LABS: ALBUMIN 3.1 gm/dl (3.1-4.5); ALKALINE PHOSPHATASE 102 U/L (45-117); BUN 14 mg/dl (7-24); CHLORIDE 104 mmol/L (98-107); CREATININE 0.87 mg/dL (0.55-1.02); POTASSIUM 3.5 mmol/L (3.5-5.1); SGOT/AST 41 IU/L (3-35); SGPT/ALT 46 U/L (12-78); SODIUM 136 mmol/L (136-145); TOTAL PROTEIN 6.8 gm/dL (6.4-8.2)
[2021-05-24 18:32] LABS: TROPONIN I < 0.015 ng/ml (<0.045)
== END 2021-05-24 23:00 | disposition home or self-care (01) ==
LOC: ED 17:22
PROVIDERS: Family Medicine
DX: E11.65 Type 2 diabetes mellitus with hyperglycemia (principal); R07.89 Other chest pain; R06.02 Shortness of breath; R20.0 Anesthesia of skin; R00.2 Palpitations; Z79.899 Other long term (current) drug therapy; Z79.4 Long term (current) use of insulin; Z90.711 Acquired absence of uterus with remaining cervical stump; Z98.890 Other specified postprocedural states; Z98.51 Tubal ligation status

== ENCOUNTER 2021-06-27 01:10 | Emergency (ER) | payer OTHER ==
[~2021-06-27] VITALS: Ht 167.6 cm; Wt 149.7 kg
[2021-06-27 01:31] LABS: BASO # 0.1 10*3/uL (0.0-0.1); BASO % 0.4 % (0.0-1.0); EOS # 0.3 10*3/uL (0.0-0.4); EOS % 2.6 % (1.0-4.0); HEMATOCRIT 40.9 % (37.0-47.0); LYMPH # 1.9 10*3/uL (1.3-4.4); LYMPH % 16.4 % (27.0-41.0); MEAN CORPUSCULAR HGB 23.5 pg (27.0-31.0); MEAN CORPUSCULAR HGB CONC 29.3 g/dl (33.0-37.0); MEAN PLATELET VOLUME 9.2 fl (9.6-12.3); MONO # 0.8 10*3/uL (0.1-1.0); MONO % 6.6 % (3.0-9.0); NEUT # 8.6 10*3/uL (2.3-7.9); PLATELET COUNT AUTOMATED 191 10*3/uL (130-400); RED BLOOD COUNT 5.11 10*6/uL (4.10-5.10); RED CELL DISTRI WIDTH 15.9 % (0-14.5); WHITE BLOOD COUNT 11.7 10*3/uL (4.8-10.8)
[2021-06-27 01:48] LABS: ALBUMIN 3.2 gm/dl (3.1-4.5); ALKALINE PHOSPHATASE 99 U/L (45-117); BUN 17 mg/dl (7-24); CHLORIDE 102 mmol/L (98-107); CREATININE 0.76 mg/dL (0.55-1.02); POTASSIUM 3.9 mmol/L (3.5-5.1); SGOT/AST 35 IU/L (3-35); SGPT/ALT 47 U/L (12-78); SODIUM 137 mmol/L (136-145); TOTAL PROTEIN 6.7 gm/dL (6.4-8.2); TROPONIN I < 0.015 ng/ml (<0.045)
[2021-06-27] MEDS ORDERED: PREDNISONE20 M1 PO ×2 (04:51)
[2021-06-27] MEDS ORDERED: HYDROCODONE-AC1 EAC1 PO (04:51)
[2021-07-26] MEDS ORDERED: NEURONTIN800 MG PO (06:29)
[2021-07-26] MEDS ORDERED: Motrin,Rufen800 MG PO (06:30)
[2021-07-26] MEDS ORDERED: COZAAR50 M1 PO (06:31)
[2021-07-26] MEDS ORDERED: TOPAMAX25 M3 PO (06:32)
[2021-07-26] MEDS ORDERED: PROTONIX40 MG PO (06:32)
[2021-07-29] MEDS ORDERED: PROVENTIL HFA6.7 GM INH (11:56)
[2021-07-29] MEDS ORDERED: PREDNISONE10 MG PO (11:56)
[2021-07-29] MEDS ORDERED: Vitamin D (1,000 UNI PO (11:56)
[2021-07-29] MEDS ORDERED: VITAMIN D350 MC2 PO (11:57)
== END 2021-06-27 05:25 | disposition home or self-care (01) ==
LOC: ED 01:10
PROVIDERS: Emergency Medicine
DX: R07.89 Other chest pain (principal); M25.512 Pain in left shoulder; Z79.899 Other long term (current) drug therapy; Z98.51 Tubal ligation status; Z90.711 Acquired absence of uterus with remaining cervical stump; Z98.890 Other specified postprocedural states; X50.1XXA Overexertion from prolonged static or awkward postures, initial encounter; Y93.84 Activity, sleeping; Y92.89 Other specified places as the place of occurrence of the external cause; Y99.8 Other external cause status

== ENCOUNTER → 2022-10-21 | Outpatient (CLI) | payer OTHER ==
[~2022-10-21] MED LIST changes: +COZAAR50 M1 PO; +HYDROCODONE-AC1 EAC1 PO; +Motrin,Rufen800 MG PO; +NEURONTIN800 MG PO; +PROTONIX40 MG PO; +TOPAMAX25 M3 PO; +VITAMIN D350 MC2 PO; +Vitamin D (1,000 UNI PO
== END | disposition home or self-care (01) ==
LOC: CARD 10-02 14:00
PROVIDERS: ATTEND Internal Medicine Cardiovascular Disease
DX: Z01.810 Encounter for preprocedural cardiovascular examination (principal); I51.7 Cardiomegaly; I34.89 Other nonrheumatic mitral valve disorders

== ENCOUNTER 2023-03-20 19:48 | Emergency (ER) | payer OTHER ==
[~2023-03-20] VITALS: Wt 121.1 kg
[2023-03-20 21:05] LABS: BASO % 0.4 % (0.0-1.0); EOS # 0.2 10*3/uL (0.0-0.4); HEMATOCRIT 43.4 % (37.0-47.0); LYMPH # 1.7 10*3/uL (1.3-4.4); MEAN CELL VOLUME 85.1 fl (81.0-99.0); MEAN CORPUSCULAR HGB 27.3 pg (27.0-31.0); MEAN PLATELET VOLUME 9.2 fl (9.6-12.3); MONO # 0.8 10*3/uL (0.1-1.0); MONO % 8.5 % (3.0-9.0); NEUT # 6.2 10*3/uL (2.3-7.9); NEUT % 69.8 % (47.0-73.0); PLATELET COUNT AUTOMATED 164 10*3/uL (130-400); RED CELL DISTRI WIDTH 14.3 % (0-14.5); WHITE BLOOD COUNT 8.9 10*3/uL (4.8-10.8)
[2023-03-20 21:24] LABS: ALKALINE PHOSPHATASE 116 U/L (46-116); BUN 11 mg/dl (9-23); CHLORIDE 100 mmol/L (98-107); SGPT/ALT 28 U/L (10-49); TOTAL PROTEIN 6.7 gm/dL (6.0-8.0)
[2023-03-20] MEDS ORDERED: DECADRON4 MG PO (22:32)
== END 2023-03-20 23:03 | disposition home or self-care (01) ==
LOC: ED 19:48
PROVIDERS: Physician Assistant
DX: U07.1 COVID-19 (principal); E11.9 Type 2 diabetes mellitus without complications; Z79.899 Other long term (current) drug therapy; Z90.710 Acquired absence of both cervix and uterus; Z90.89 Acquired absence of other organs; Z98.890 Other specified postprocedural states; Z98.51 Tubal ligation status

== ENCOUNTER 2023-04-10 16:12 | Emergency (ER) | payer OTHER ==
[~2023-04-10] VITALS: Ht 170.1 cm; Wt 120.7 kg
[~2023-04-10 16:12] MED LIST changes: +DECADRON4 MG PO
[2023-04-10 16:49] LABS: BASO % 0.2 % (0.0-1.0); EOS # 0.2 10*3/uL (0.0-0.4); EOS % 1.7 % (1.0-4.0); HEMATOCRIT 43.6 % (37.0-47.0); LYMPH # 2.2 10*3/uL (1.3-4.4); LYMPH % 17.2 % (27.0-41.0); MEAN CORPUSCULAR HGB 26.7 pg (27.0-31.0); MEAN CORPUSCULAR HGB CONC 32.1 g/dl (33.0-37.0); MEAN PLATELET VOLUME 9.2 fl (9.6-12.3); MONO # 0.6 10*3/uL (0.1-1.0); NEUT # 9.4 10*3/uL (2.3-7.9); NEUT % 75.5 % (47.0-73.0); PLATELET COUNT AUTOMATED 183 10*3/uL (130-400); RED BLOOD COUNT 5.25 10*6/uL (4.10-5.10); RED CELL DISTRI WIDTH 14.7 % (0-14.5); WHITE BLOOD COUNT 12.5 10*3/uL (4.8-10.8)
[2023-04-10 17:14] LABS: ALKALINE PHOSPHATASE 100 U/L (46-116); BUN 10 mg/dl (9-23); CHLORIDE 105 mmol/L (98-107); POTASSIUM 3.7 mmol/L (3.4-5.1); SGPT/ALT 19 U/L (10-49); TOTAL PROTEIN 6.7 gm/dL (6.0-8.0)
[2023-04-10] MEDS ORDERED: IBU800 M1 PO (17:51)
[2023-04-10] MEDS ORDERED: MUCINEX DM 30/61 TAB PO (17:51)
== END 2023-04-10 18:00 | disposition home or self-care (01) ==
LOC: ED 16:12
PROVIDERS: Student in an Organized Health Care Education/Training Program
DX: A08.4 Viral intestinal infection, unspecified (principal); J06.9 Acute upper respiratory infection, unspecified; Z79.899 Other long term (current) drug therapy; Z90.710 Acquired absence of both cervix and uterus; Z90.89 Acquired absence of other organs; Z98.890 Other specified postprocedural states; Z98.51 Tubal ligation status

== ENCOUNTER 2023-07-19 16:14 | Emergency (ER) | payer BC ==
[~2023-07-19] VITALS: Ht 167.6 cm; Wt 115.7 kg
[2023-07-19] MEDS ORDERED: TRAZODONE100 MG PO (16:33)
[2023-07-19] MEDS ORDERED: DULOXETINE HCL30 MG PO (16:33)
[2023-07-19 17:05] LABS: BASO % 0.3 % (0.0-1.0); EOS # 0.3 10*3/uL (0.0-0.4); EOS % 2.1 % (1.0-4.0); HEMATOCRIT 46.2 % (37.0-47.0); LYMPH # 2.4 10*3/uL (1.3-4.4); LYMPH % 20.3 % (27.0-41.0); MEAN CELL VOLUME 86.4 fl (81.0-99.0); MEAN CORPUSCULAR HGB 27.3 pg (27.0-31.0); MEAN CORPUSCULAR HGB CONC 31.6 g/dl (33.0-37.0); MEAN PLATELET VOLUME 9.3 fl (9.6-12.3); MONO # 0.7 10*3/uL (0.1-1.0); MONO % 6.2 % (3.0-9.0); NEUT # 8.3 10*3/uL (2.3-7.9); NEUT % 70.8 % (47.0-73.0); PLATELET COUNT AUTOMATED 206 10*3/uL (130-400); RED BLOOD COUNT 5.35 10*6/uL (4.10-5.10); WHITE BLOOD COUNT 11.7 10*3/uL (4.8-10.8)
[2023-07-19 17:27] LABS: ALKALINE PHOSPHATASE 101 U/L (46-116); BUN 15 mg/dl (9-23); CHLORIDE 105 mmol/L (98-107); POTASSIUM 3.8 mmol/L (3.4-5.1); SGPT/ALT 23 U/L (10-49); TOTAL PROTEIN 6.7 gm/dL (6.0-8.0)
[2023-07-19] MEDS ORDERED: PREDNISONE20 M1 PO (19:39)
== END 2023-07-19 19:58 | disposition home or self-care (01) ==
LOC: ED 16:14
PROVIDERS: Nurse Practitioner Family
DX: G43.909 Migraine, unspecified, not intractable, without status migrainosus (principal); F41.9 Anxiety disorder, unspecified; E11.9 Type 2 diabetes mellitus without complications; Z87.442 Personal history of urinary calculi; Z86.16 Personal history of COVID-19; Z90.89 Acquired absence of other organs; Z90.710 Acquired absence of both cervix and uterus; Z98.890 Other specified postprocedural states; Z98.51 Tubal ligation status

== ENCOUNTER 2023-07-25 10:24 | Emergency (ER) | payer BC ==
[~2023-07-25] VITALS: Wt 114.3 kg
[~2023-07-25 10:24] MED LIST changes: +DULOXETINE HCL30 MG PO; +TRAZODONE100 MG PO
== END 2023-07-25 13:26 | disposition home or self-care (01) ==
LOC: ED 10:24
DX: R51.9 Headache, unspecified (principal); F41.9 Anxiety disorder, unspecified; E11.9 Type 2 diabetes mellitus without complications; Z79.4 Long term (current) use of insulin; Z87.442 Personal history of urinary calculi; Z98.51 Tubal ligation status; Z98.890 Other specified postprocedural states; Z90.710 Acquired absence of both cervix and uterus; F17.200 Nicotine dependence, unspecified, uncomplicated

== ENCOUNTER 2023-08-05 09:22 | Emergency (ER) | payer BC ==
[~2023-08-05] VITALS: Ht 167.6 cm; Wt 114.3 kg
[2023-08-05 10:23] LABS: BASO % 0.4 % (0.0-1.0); EOS # 0.2 10*3/uL (0.0-0.4); EOS % 1.8 % (1.0-4.0); HEMATOCRIT 47.3 % (37.0-47.0); LYMPH # 2.9 10*3/uL (1.3-4.4); LYMPH % 26.8 % (27.0-41.0); MEAN CORPUSCULAR HGB 27.7 pg (27.0-31.0); MEAN PLATELET VOLUME 8.7 fl (9.6-12.3); MONO # 0.5 10*3/uL (0.1-1.0); MONO % 4.9 % (3.0-9.0); NEUT # 7.1 10*3/uL (2.3-7.9); NEUT % 65.7 % (47.0-73.0); PLATELET COUNT AUTOMATED 180 10*3/uL (130-400); RED BLOOD COUNT 5.63 10*6/uL (4.10-5.10); RED CELL DISTRI WIDTH 13.3 % (0-14.5); WHITE BLOOD COUNT 10.8 10*3/uL (4.8-10.8)
[2023-08-05 10:35] LABS: ACT PARTIAL THROMBO TIME 28.4 SECONDS (20.0-32.1)
[2023-08-05 10:42] LABS: ALKALINE PHOSPHATASE 100 U/L (46-116); BUN 17 mg/dl (9-23); CHLORIDE 104 mmol/L (98-107); POTASSIUM 3.6 mmol/L (3.4-5.1); SGPT/ALT 28 U/L (10-49); TOTAL PROTEIN 7.2 gm/dL (6.0-8.0)
== END 2023-08-05 14:57 | disposition home or self-care (01) ==
LOC: ED 09:22
PROVIDERS: Emergency Medicine
DX: R51.9 Headache, unspecified (principal); H57.11 Ocular pain, right eye; F41.9 Anxiety disorder, unspecified; E11.9 Type 2 diabetes mellitus without complications; Z79.4 Long term (current) use of insulin; Z90.89 Acquired absence of other organs; Z90.710 Acquired absence of both cervix and uterus; Z98.890 Other specified postprocedural states; Z98.51 Tubal ligation status; Z87.442 Personal history of urinary calculi

== ENCOUNTER 2023-08-21 20:04 | Emergency (ER) | payer BC ==
[~2023-08-21] VITALS: Ht 162.5 cm; Wt 114.3 kg
[2023-08-21] MEDS ORDERED: NURTEC ODT75 MG PO (20:37)
[2023-08-21 21:56] LABS: BASO % 0.3 % (0.0-1.0); EOS # 0.2 10*3/uL (0.0-0.4); HEMATOCRIT 44.7 % (37.0-47.0); LYMPH # 2.9 10*3/uL (1.3-4.4); LYMPH % 24.3 % (27.0-41.0); MEAN CELL VOLUME 84.3 fl (81.0-99.0); MEAN CORPUSCULAR HGB 27.9 pg (27.0-31.0); MEAN CORPUSCULAR HGB CONC 33.1 g/dl (33.0-37.0); MEAN PLATELET VOLUME 8.9 fl (9.6-12.3); MONO # 0.7 10*3/uL (0.1-1.0); MONO % 5.7 % (3.0-9.0); NEUT % 67.4 % (47.0-73.0); PLATELET COUNT AUTOMATED 182 10*3/uL (130-400); RED CELL DISTRI WIDTH 13.5 % (0-14.5); WHITE BLOOD COUNT 11.9 10*3/uL (4.8-10.8)
[2023-08-21 22:17] LABS: BILIRUBIN Negative (Negative); BLOOD Negative (Negative); CLARITY Cloudy (Clear); COLOR Yellow (Yellow); GLUCOSE Negative (Negative); KETONE Negative (Negative); NITRITE Negative (Negative); PH 6.5 (4.5-8.0)
[2023-08-21 22:21] LABS: ALKALINE PHOSPHATASE 88 U/L (46-116); BUN 14 mg/dl (9-23); CHLORIDE 107 mmol/L (98-107); POTASSIUM 3.9 mmol/L (3.4-5.1); SGPT/ALT 13 U/L (10-49); TOTAL PROTEIN 6.7 gm/dL (6.0-8.0)
[2023-08-21 22:42] LABS: BACTERIA 1+; EPITHELIAL CELLS 16-20; RBC 0-2 rbc/hpf (0-2)
[2023-08-21 22:43] LABS: LEUKO ESTERASE Trace (Negative)
== END 2023-08-22 00:18 | disposition home or self-care (01) ==
LOC: ED 20:04
PROVIDERS: Nurse Practitioner
DX: G43.909 Migraine, unspecified, not intractable, without status migrainosus (principal); N20.0 Calculus of kidney; Z79.899 Other long term (current) drug therapy; Z90.89 Acquired absence of other organs; Z98.890 Other specified postprocedural states; Z90.711 Acquired absence of uterus with remaining cervical stump

== ENCOUNTER 2023-10-10 17:53 | Emergency (ER) | payer BC ==
[~2023-10-10] VITALS: Ht 167.6 cm; Wt 113.4 kg
[~2023-10-10 17:53] MED LIST changes: +NURTEC ODT75 MG PO
[2023-10-10] MEDS ORDERED: ABILIFY5 MG PO (18:10)
[2023-10-10] MEDS ORDERED: MELATONIN10 M2 PO (18:11)
[2023-10-10 19:21] LABS: BILIRUBIN Negative (Negative); BLOOD Negative (Negative); CLARITY Cloudy (Clear); COLOR Yellow (Yellow); GLUCOSE Negative (Negative); KETONE Negative (Negative); LEUKO ESTERASE Negative (Negative); NITRITE Negative (Negative); PH 6.5 (4.5-8.0); UROBILINOGEN 0.2 E.U./dl (0.0-1.0)
[2023-10-10 19:33] LABS: BACTERIA 1+; EPITHELIAL CELLS TNTC; WBC 0-2 wbc/hpf (0-5)
[2023-10-10 20:11] LABS: BASO % 0.4 % (0.0-1.0); EOS # 0.2 10*3/uL (0.0-0.4); HEMATOCRIT 45.8 % (37.0-47.0); LYMPH # 2.5 10*3/uL (1.3-4.4); LYMPH % 22.8 % (27.0-41.0); MEAN CELL VOLUME 86.1 fl (81.0-99.0); MEAN CORPUSCULAR HGB CONC 32.5 g/dl (33.0-37.0); MEAN PLATELET VOLUME 9.2 fl (9.6-12.3); MONO # 0.6 10*3/uL (0.1-1.0); MONO % 5.2 % (3.0-9.0); NEUT # 7.5 10*3/uL (2.3-7.9); NEUT % 69.1 % (47.0-73.0); PLATELET COUNT AUTOMATED 158 10*3/uL (130-400); RED BLOOD COUNT 5.32 10*6/uL (4.10-5.10); RED CELL DISTRI WIDTH 13.2 % (0-14.5); WHITE BLOOD COUNT 10.8 10*3/uL (4.8-10.8)
[2023-10-10 20:22] LABS: ACT PARTIAL THROMBO TIME 28.1 SECONDS (20.0-32.1)
[2023-10-10 20:31] LABS: ALKALINE PHOSPHATASE 98 U/L (46-116); BUN 10 mg/dl (9-23); CHLORIDE 104 mmol/L (98-107); CPK 44 U/L (34-171); LIPASE 34 U/L (12-53); POTASSIUM 3.5 mmol/L (3.4-5.1); SGPT/ALT 31 U/L (5-49); TOTAL PROTEIN 6.6 gm/dL (6.0-8.0); TRIGLYCERIDES 224 mg/dl (<150)
== END 2023-10-10 23:39 | disposition home or self-care (01) ==
LOC: ED 17:53
PROVIDERS: Nurse Practitioner Family
DX: R10.12 Left upper quadrant pain (principal); R35.0 Frequency of micturition; R11.0 Nausea; G43.909 Migraine, unspecified, not intractable, without status migrainosus; F41.9 Anxiety disorder, unspecified; J45.909 Unspecified asthma, uncomplicated; F32.A Depression, unspecified; I10 Essential (primary) hypertension; K21.9 Gastro-esophageal reflux disease without esophagitis; E44.0 Moderate protein-calorie malnutrition; E66.01 Morbid (severe) obesity due to excess calories; E11.40 Type 2 diabetes mellitus with diabetic neuropathy, unspecified; M19.90 Unspecified osteoarthritis, unspecified site; Z79.899 Other long term (current) drug therapy; Z87.442 Personal history of urinary calculi

== ENCOUNTER 2024-02-18 20:23 | Emergency (ER) | payer BC ==
[~2024-02-18] VITALS: Ht 165.1 cm; Wt 57.2 kg
[~2024-02-18 20:23] MED LIST changes: +ABILIFY5 MG PO; +MELATONIN10 M2 PO
[2024-02-18] MEDS ORDERED: ACETAMINOPHEN 325 MG TAB PO ONE (20:45)
[2024-02-18] MEDS ORDERED: Ketorolac Tromethamine 30 MG/ML VIAL IV ONE (20:45)
[2024-02-18] MEDS ORDERED: SODIUM CHLORIDE 0.9% 1,000 ML IV ONE (20:45)
[2024-02-18] MEDS ORDERED: Dexamethasone Sodium Phospha 20 MG/5 ML VIAL IV ONE (20:45)
[2024-02-18] MEDS ORDERED: Promethazine Hydrochloride 25 MG/ML VIAL IV ONE (20:45)
[2024-02-18] MEDS ORDERED: PREDNISONE50 MG PO (22:04)
[2024-02-18] MEDS ORDERED: MELOXICAM15 MG PO (22:04)
== END 2024-02-18 22:09 | disposition home or self-care (01) ==
LOC: ED 20:23
DX: G43.909 Migraine, unspecified, not intractable, without status migrainosus (principal); M54.50 Low back pain, unspecified; Z79.899 Other long term (current) drug therapy; Z90.711 Acquired absence of uterus with remaining cervical stump; Z90.89 Acquired absence of other organs; Z98.51 Tubal ligation status; Z87.442 Personal history of urinary calculi

== ENCOUNTER 2025-03-22 13:39 | Emergency (ER) | payer BC, MEDICARE ==
[~2025-03-22] VITALS: Wt 136.1 kg
[~2025-03-22 13:39] MED LIST changes: +MELOXICAM15 MG PO; +PREDNISONE50 MG PO; +SEPTDS PO
[2025-03-22] MEDS ORDERED: PREDNISONE20 M1 PO (14:21)
[2025-03-22] MEDS ORDERED: methylPREDNISolone sod succ 125 MG VIAL IM ONE (14:25)
[2025-03-22] MEDS ORDERED: Water, Sterile 10 ML VIAL ONE (14:47)
== END 2025-03-22 14:38 | disposition home or self-care (01) ==
LOC: ED 13:39
DX: L25.9 Unspecified contact dermatitis, unspecified cause (principal); G43.909 Migraine, unspecified, not intractable, without status migrainosus; F41.9 Anxiety disorder, unspecified; E11.40 Type 2 diabetes mellitus with diabetic neuropathy, unspecified; J45.909 Unspecified asthma, uncomplicated; F32.A Depression, unspecified; E66.01 Morbid (severe) obesity due to excess calories; E44.0 Moderate protein-calorie malnutrition; M19.90 Unspecified osteoarthritis, unspecified site; Z98.890 Other specified postprocedural states; Z90.89 Acquired absence of other organs; Z79.899 Other long term (current) drug therapy; Z90.710 Acquired absence of both cervix and uterus